=== PATIENT | female | born 1955 | race Caucasian/White ===

== ENCOUNTER 2024-04-11 19:09 | Emergency (ER) | payer MEDICARE, MEDICAID, SELFPAY ==
[2024-04-11 19:13] VITALS: BMI 19.5
[2024-04-11 19:14] VITALS: BP 169/83; PULSE 67; RESP 18; TEMP 36.6; O2SAT 98
--- NOTE | 2024-04-11 19:48 | PD.EDRME ---
Rapid Medical Screening Exam RME Arrival date/time: 04/11/24 19:09 Chief Complaint: General Adult/Misc Complain Time Seen by Provider: 04/11/24 19:47 Vital signs: Vital Signs Temperature 97.8 F 04/11/24 19:14 Pulse Rate 67 04/11/24 19:14 Respiratory Rate 18 04/11/24 19:14 Blood Pressure 169/83 H 04/11/24 19:14 Pulse Oximetry (%) 98 04/11/24 19:14 Oxygen Delivery Method Room Air 04/11/24 19:14 RME Narrative: 68-year-old female brought in after being found on the sidewalk. EMS reports she was missing for several hours prior to discovery. She is now presenting for further assessment and examination. MD Attestation MD Attestation Scribe Attestation: I, Eunice Shay, am scribing for and in the presence of Dr. Mccall. Provider Notation: Although this document has been carefully reviewed, there may still be some phonetic and other typographical errors. These errors are purely grammatical due to imperfections in the software program and should not be construed in any way to compromise the substance of the patient's medical care during this visit.
--- NOTE | 2024-04-11 19:53 | EDNOTE_ITS ---
ED General RME/HPI General Chief complaint: General Adult/Misc Complain Stated complaint: AMS Time Seen by Provider: 04/11/24 19:47 Source: patient and EMS Arrival date/time: 04/11/24 19:09 Mode of arrival: EMS Limitations: no limitations RME / HPI RME / HPI narrative: Dr. Mccall?s Main ED Evaluation: A 68-year-old female with a medical history of dementia, hypertension, asthma, rheumatoid arthritis, and schizophrenia was brought to the emergency department after being found on the sidewalk. According to EMS, the patient had been missing for several hours prior to discovery. The patient denied any pain or discomfort at the time of the evaluation. Related Data Home Medications ?Medication ?Instructions ?Recorded ?Confirmed folic acid 1 mg tablet 1 mg PO QDAY 12/28/23 lisinopril 20 1 tab PO QDAY 12/28/2312/27 mg-hydrochlorothiazide 12.5 mg tablet Previous Rx's ?Medication ?Instructions ?Recorded nicotine 14 mg/24 hr daily 14 mg top QDAY #7 ea transdermal patch quetiapine 50 mg tablet 50 mg PO BID #60 tabs Allergies Allergy/AdvReac Type Severity Reaction Status Date / Time No Known Allergies Allergy Verified 10/02/23 23:41 Review of Systems Review of Systems Systems Reviewed: All systems reviewed, normal except as documented Past Medical History Past Medical History NEUROLOGIC: Positive Neurological Disorders and Dementia CARDIAC: Positive Cardiac Disorders (HTN) and Hypertension; Negative Congestive Heart Failure RESPIRATORY: Positive Asthma (Rarely with breathing problems); Negative Chronic Obstructive Pulmonary Disease (COPD) GENITOURINARY: Negative Renal Disease MUSCULOSKELETAL: Positive Musculoskeletal Disorders and Rheumatoid Arthritis ENDOCRINE: Positive Endocrine Disorders; Negative Diabetes Mellitus Type 1 or Diabetes Mellitus Type 2 HEMATOLOGIC: Negative Sickle Cell Disease (Unknown) PSYCHO/SOCIAL: Positive Schizophrenia OTHER HISTORY: Negative Anesthesia Reactions Social History SMOKING STATUS: Never smoker SECOND HAND EXPOSURE: Yes SUBSTANCE USE: methamphetamine (hx) ED Exam Narrative Physical exam: Upon arrival, she appeared cachectic but was in no acute distress. She was alert and able to follow simple commands without evidence of facial droop or other neurological deficits. Physical examination revealed no signs of facial trauma, new bruising, or other external injuries. The abdomen was soft and non-tender to palpation, with no palpable lumps, masses, or abnormalities noted. General Limitations: Present no limitations General appearance: Present alert and in no apparent distress Head Head exam: Present atraumatic Eye Eye exam: Present normal appearance, PERRL and EOMI ENT ENT exam: Present normal exam, normal oropharynx and mucous membranes moist Neck Neck exam: Present normal inspection, full ROM and trachea midline Chest Chest inspection: Present normal inspection and symmetric chest wall rise Respiratory Respiratory exam: Present normal lung sounds bilaterally Cardiovascular Cardiovascular exam: Present regular rate, normal rhythm and normal heart sounds Abdominal Exam Abdominal exam: Present soft and normal bowel sounds Extremities Exam Extremities exam: Present normal inspection and full ROM Back Exam Back exam: Present normal inspection and full ROM Neurological Exam Neurological exam: Present alert, oriented X3 and CN II-XII intact Psychiatric Psychiatric exam: Present normal affect and normal mood Skin Skin exam: Present warm, dry, intact and normal color Course Course Course Narrative: Plan -CBC -UA Quality Measures none Orders Category Date Time Status CBC Stat Lab 04/11/24 22:21 Completed CMP [Comprehensive Metabolic Panel] Stat Lab 04/11/24 22:21 Completed Urinalysis, C/S if Indicated Stat Lab 04/11/24 22:22 Completed Vital Signs Vital signs: Vital Signs Temperature 97.8 F 04/11/24 19:14 Pulse Rate 67 04/11/24 19:14 Respiratory Rate 18 04/11/24 19:14 Blood Pressure 169/83 H 04/11/24 19:14 Pulse Oximetry (%) 98 04/11/24 19:14 Oxygen Delivery Method Room Air 04/11/24 19:14 [facility] Patient data External records reviewed:: [facility] previous records and EMS form Clinical information provided by:: EMS Social determinants that could affect healthcare access:: none Patient has the following chronic illnesses:: See PMH How is presenting disease/condition affected by chronic disease/condition?: u neffected by Evaluation data The following diagnostics were reviewed and interpreted by me:: lab results Lab and/or radiology exams considered but not ordered:: None Interpretation Summary: CBC is normal, CMP is normal, UA is unremarkable, according to my interpretation. Medications Medications considered but not ordered:: None Medication administrations:: As above, if any Consultations Consultation(s) initiated? (list below): No Diagnosis Differential Diagnosis ED Complaint MDM: Baseline dementia, UTI, electrolyte abnormality, dehydration Most likely diagnosis given after review of the tests above:: See clinical impression Admission Indicated Admission indicated?: not indicated Explain why admission is indicated or not indicated:: Admission criteria not met. Patient is stable to be discharged home. Admission Request Was there a request for admission?: No Disposition Plan Disposition Plan: Discharge Discharge Attestation Discharge Attestation: The patient and all family members were given an opportunity to ask questions and understood the discharge instructions. Discharge instructions specifically effects, indications for sooner follow up or return to the emergency department, and the expected course of current diagnosis. Patient condition: Stable Medical Decision Making MDM Narrative MDM Narrative: A review of the patient's medical record reveals a recent hospitalization in December 2023 due to a left hip displaced femoral neck fracture s/p hermiarthroplasty. The records further indicate that the patient is unhoused, living in her car, and has a longstanding history of schizophrenia. Additionally, there is documentation of chronic substance use, involving methamphetamine. The current presentation may be influenced by her complex circumstances such as her unstable living conditions, mental health history, and substance use. Scribe Attestation: I, Eunice Shay, am scribing for and in the presence of Dr. Mccall. Provider Notation: Although this document has been carefully reviewed, there may still be some phonetic and other typographical errors. These errors are purely grammatical due to imperfections in the software program and should not be construed in any way to compromise the substance of the patient's medical care during this visit. Differential Diagnosis Differential Diagnosis: Baseline dementia, UTI, electrolyte abnormality, dehydration Medical Records Medical records reviewed: Yes I reviewed the patient's medical records. Lab Data Lab results reviewed: Yes I reviewed the patient's lab results. 04/11/24 22:21 04/11/24 22:21 Labs: Lab Results 04/11/24 04/11/24 Range/Units 22:21 22:22 WBC 9.0 (3.6-11.0) Thou/mm3 RBC 4.34 (4.00-5.20) Miln/mm3 Hgb 12.3 (12.0-16.0) g/dL Hct 38.2 (36.0-46.0) % MCV 88 (80-100) fL MCH 28.3 (25.0-35.0) pg MCHC 32.2 (31.0-37.0) g/dl RDW Std Deviation 43.9 (36.4-46.3) fL Plt Count 241 (140-440) Thou/mm3 Neut % (Auto) 75 (37-80) % Lymph % (Auto) 16 (10-50) % [place] % (Auto) 8 (0-12) % Eos % (Auto) 0 (0-10) % Baso % (Auto) 1 (0-2.5) % Neut # (Auto) 6.7 (1.8-7.7) Thou/mm3 Lymph # (Auto) 1.4 (1.0-4.8) Thou/mm3 [place] # (Auto) 0.8 (0.0-0.8) Thou/mm3 Eos # (Auto) 0.0 (0.0-0.5) Thou/mm3 Baso # (Auto) 0.1 (0.0-0.2) Thou/mm3 Immature Gran # (Auto) 0.02 H (0.00-0.00) Thou/mm3 Absolute Nucleated RBC 0.00 (0.00-0.00) Thou/mm3 Immature Gran % 0 (0-0) % Nucleated RBC % 0 (0) /100 WBC Sodium 144 (136-145) mMol/L Potassium 3.9 (3.4-5.1) mMol/L Chloride 110 H (98-107) mMol/L Carbon Dioxide 26.8 (20.0-31.0) mMol/L Anion Gap 7 (7-16) BUN 19 (9-23) mg/dL Creatinine 0.8 (0.6-1.3) mg/dL Estim Creat Clear Calc 46.9 L (>60) mL/min eGFR > 60 (60 - ) See Note BUN/Creatinine Ratio 24 H (12-20) Ratio Glucose 89 (74-106) mg/dL Calculated Osmolality 288 (275-295) Calcium 9.9 (8.3-10.6) mg/dL Corrected Calcium 10.1 (8.5-10.1) mg/dL Total Bilirubin 0.4 (0.3-1.2) mg/dL AST 14 (0-34) U/L ALT < 7 L (10-49) U/L Alkaline Phosphatase 63 (46-116) U/L Total Protein 7.0 (5.7-8.2) gm/dL Albumin 3.8 (3.4-4.8) gm/dL Globulin 3.2 (2.3-3.5) gm/dL Albumin/Globulin Ratio 1.2 (1.2-2.2) Ur Collection Type Clean Catch Urine Color Yellow (Lt Yel-Yel) Urine Clarity Clear (Clear/Hazy) Urine pH 6.0 (5.0-7.0) Ur Specific [place] 1.026 (1.001-1.035) Urine Protein Trace (Neg - Trace) Urine Glucose (UA) Negative (Negative) Urine Ketones Trace (Negative) Urine Blood Negative (Negative) Urine Nitrite Negative (Negative) Urine Bilirubin Negative (Negative) Urine Urobilinogen (Auto) 3.0 (0.0-1.0) mg/dL Ur Leukocyte Esterase Positive (Negative) Urine RBC 3 (0-3) /hpf Urine WBC 8 H (0-5) /hpf Ur Squamous Epith Cells < 1 (0-5) /hpf Urine Bacteria None (None) Ur Culture Indicated? Not Indicated Discharge Plan Plan Patient Disposition: HOME (Self Care) Patient condition on transfer: Stable Prescriptions/Referrals Prescriptions/Med Rec: No Action folic acid 1 mg tablet 1 mg PO QDAY Patient Comments: TAKE 1 TABLET BY MOUTH EVERY DAY lisinopril-hydrochlorothiazide 20-12.5 mg tablet 1 tab PO QDAY Patient Comments: TAKE 1 TABLET BY MOUTH EVERY DAY nicotine 14 mg/24 hr Patch 24 Hour 14 mg top QDAY Qty: 7 0RF quetiapine 50 mg tablet 50 mg PO BID Qty: 60 0RF Referrals: No Primary/Family,Physician [Primary Care Provider] - In 1 week Problem List Clinical Impression: Dementia Patient/Caregiver Discharge Instructions Diet Instructions: Continue your current diet. Education Materials: Caring for End-Stage Dementia Additional Instructions: Return to the emergency department for any worsening symptoms, or any other concerns. Print Language: Swazi Stand Alone Forms: [facility] Award Info., Patient Portal Info Letter
[2024-04-11 20:10] VITALS: BP 172/93; PULSE 65; RESP 16; TEMP 37.1; O2SAT 100
[2024-04-11 21:10] VITALS: BP 148/100; PULSE 63; RESP 14; O2SAT 98
[2024-04-11 22:40] LABS: Basophils # (Auto) 0.1 Thou/mm3 (0.0-0.2); Basophils % (Auto) 1 % (0-2.5); Eosinophils % (Auto) 0 % (0-10); Hematocrit 38.2 % (36.0-46.0); Hemoglobin 12.3 g/dL (12.0-16.0); Immature Granulocytes % (Auto) 0 % (0-0); Immature Granulocytes Auto 0.02 Thou/mm3 (0.00-0.00); Lymphocytes # (Auto) 1.4 Thou/mm3 (1.0-4.8); Lymphocytes % (Auto) 16 % (10-50); Mean Corpuscular HGB Conc 32.2 g/dl (31.0-37.0); Mean Corpuscular Hemoglobin 28.3 pg (25.0-35.0); Mean Corpuscular Volume 88 fL (80-100); Monocytes # (Auto) 0.8 Thou/mm3 (0.0-0.8); Monocytes % (Auto) 8 % (0-12); Neutrophils # (Auto) 6.7 Thou/mm3 (1.8-7.7); Neutrophils % (Auto) 75 % (37-80); Nucleated Red Blood Cell % 0 /100 WBC (0); Platelet Count 241 Thou/mm3 (140-440); RDW Standard Deviation 43.9 fL (36.4-46.3); Red Blood Count 4.34 Miln/mm3 (4.00-5.20)
[2024-04-11 22:45] LABS: Collection Type, Urine Clean Catch
[2024-04-11 22:59] LABS: Bilirubin,Urine Negative (Negative); Blood,Urine Negative (Negative); Clarity,Urine Clear (Clear/Hazy); Color,Urine Yellow (Lt Yel-Yel); Culture Indicated,Urine Not Indicated; Glucose, Urine Negative (Negative); Ketones,Urine Trace (Negative); Leukocyte Esterase,Urine Positive (Negative); Nitrite,Urine Negative (Negative); Protein,Urine Trace (Neg - Trace); RBC,Urine 3 /hpf (0-3); Specific Gravity,Urine 1.026 (1.001-1.035); Squamous Epithelial Cell,Urine < 1 /hpf (0-5); WBC,Urine 8 /hpf (0-5)
[2024-04-11 23:00] VITALS: BP 135/75; O2SAT 98
[2024-04-11 23:05] LABS: Alanine Aminotransferase < 7 U/L (10-49); Albumin, Serum 3.8 gm/dL (3.4-4.8); Albumin/Globulin Ratio 1.2 (1.2-2.2); Alkaline Phosphatase 63 U/L (46-116); Anion Gap 7 (7-16); Aspartate Amino Transferase 14 U/L (0-34); BUN/Creatinine Ratio 24 Ratio (12-20); Bilirubin,Total 0.4 mg/dL (0.3-1.2); Blood Urea Nitrogen 19 mg/dL (9-23); Calcium 9.9 mg/dL (8.3-10.6); Calcium (Corrected) 10.1 mg/dL (8.5-10.1); Carbon Dioxide 26.8 mMol/L (20.0-31.0); Chloride 110 mMol/L (98-107); Creatinine (Component) 0.8 mg/dL (0.6-1.3); Estimated Creatinine Clearance 46.9 mL/min (>60); Globulin 3.2 gm/dL (2.3-3.5); Glucose 89 mg/dL (74-106); Osmolality,Calculated 288 (275-295); Potassium 3.9 mMol/L (3.4-5.1); Sodium 144 mMol/L (136-145); eGFR > 60 See Note
[2024-04-11 23:23] VITALS: BP 135/75; PULSE 53; RESP 14; O2SAT 99
[2024-04-12] VITALS (9 sets, daily range): BP systolic 85–125; BP diastolic 54–69; PULSE 61–68; RESP 14–20; TEMP 36.1–37.1; O2SAT 94–98
--- NOTE | 2024-04-12 06:37 | PC.NURSE ---
pT SLEPED THROUGH THE NIGHT. AROUSES EASILY.
== END 2024-04-12 07:46 | disposition home or self-care (01) ==
PROVIDERS: Emergency Provider Emergency Medicine
DX: F03.90 Unspecified dementia, unspecified severity, without behavioral disturbance, psychotic disturbance, mood disturbance, and anxiety (principal); I10 Essential (primary) hypertension; M06.9 Rheumatoid arthritis, unspecified; F20.9 Schizophrenia, unspecified
CPT/HCPCS: 36415; 80053; 81001; 85025; 99283

== ENCOUNTER 2024-04-16 23:36 | Emergency (ER) | payer MEDICARE, MEDICAID, SELFPAY ==
[2024-04-16 23:39] VITALS: BP 105/61; PULSE 78; RESP 20; TEMP 36.8; O2SAT 97
--- NOTE | 2024-04-16 23:46 | PD.EDPSYCH ---
ED Psych RME/HPI General Chief Complaint: Psychiatric Symptoms Stated Complaint: HOLD Time Seen by Provider: 04/16/24 23:40 Arrival date/time: 04/16/24 23:36 Limitations: altered mental status RME / HPI RME / HPI Narrative: Patient is a 68-year-old female with past medical history of hypertension, schizophrenia, meth use, homeless, rheumatoid arthritis, and COPD who was brought in to the ED on 04/16/2024 by law enforcement on a 5150 due to grave disability / danger to self. EMS stated that patient was found at a gas station throwing trash around. During evaluation patient is unable to answer questions appropriately, appears to be looking around, taking off her gown. She refuses to be examined. Previous records indicate that patient was admitted for a hip fracture 12/2023 and discharged to [facility]. Per detainment form 04/16/2024: Due to old age and medical issues, Rachel was unable to understand advisement. Travel center employee contacted [facility]'s Office, advised female left all her belongings and was last seen walking in cold weather. Rachel is unaware of her location. Rachel left all her property at a local store. Rachel is talking to herself and walking on the side of the street. Rachel is unable to care for herself. MD complaint: altered mental status History of same: Yes Treatments prior to arrival: none Related Data Home Medications ?Medication ?Instructions ?Recorded ?Confirmed folic acid 1 mg tablet 1 mg PO QDAY 12/28/23 12/28/23 lisinopril 20 1 tab PO QDAY 12/28/23 12/28/23 mg-hydrochlorothiazide 12.5 mg tablet Previous Rx's ?Medication ?Instructions ?Recorded nicotine 14 mg/24 hr daily 14 mg top QDAY #7 ea 01/04/24 transdermal patch quetiapine 50 mg tablet 50 mg PO BID #60 tabs 01/04/24 Allergies Allergy/AdvReac Type Severity Reaction Status Date / Time No Known Allergies Allergy Verified 10/02/23 23:41 Past Medical History Past Medical History Comments PMH COMMENT: Past Medical History: Hypertension, schizophrenia, meth use, homeless, rheumatoid arthritis, and COPD Family History: Unknown Surgical History: Unknown Social History: Unknown history of smoking, alcohol use. History of positive meth on Utox. Current Medications: Golimumab, divalproex 125 mg BID, quetiapine 100 mg qday, sertraline 25 mg qday, aspirin 81 mg (Source: Pharmacy prescription history) Allergies: No known drug allergies ED Exam Narrative Physical exam: Physical Exam General: Elderly and emaciated female confused and not answering questions appropriately. Psych: Hyperactive, not following commands, looking around constantly, tangential speech. Neuro: Moves all 4 extremities. General Limitations: Present altered mental status Course Course Course Narrative: Will order CBC, CMP, Mag, Phos, B12, Ammonia, TSH, Acetaminophen, Salicylate, Alcohol, Urine drug screen, and UA to determine any underlying medical etiology for the patient's psychosis. 00:07 Patient was administered 2 mg IM lorazepam and 5 mg IM haloperidol for agitation and unwillingness to comply with medical workup. Quality Measures none Orders Category Date Time Status Bedside Blood Glucose NOW Care 04/16/24 23:57 Active Acetaminophen Stat Lab 04/16/24 23:55 Received Alcohol, Blood Medical Stat Lab 04/16/24 23:55 Received Ammonia Stat Lab 04/16/24 23:58 Received CBC Stat Lab 04/16/24 23:55 Completed CMP [Comprehensive Metabolic Panel] Stat Lab 04/16/24 23:55 Received Drug Screen,Urine Stat Lab 04/16/24 23:55 Ordered Magnesium Stat Lab 04/16/24 23:55 Received Partial Thromboplastin Time Stat Lab 04/16/24 23:58 Received Phosphorous Stat Lab 04/16/24 23:55 Received Prothrombin Time with INR Stat Lab 04/16/24 23:58 Received Salicylate Stat Lab 04/16/24 23:55 Received Thyroid Stimulating Hormone Stat Lab 04/16/24 23:55 Received Urinalysis, C/S if Indicated Stat Lab 04/16/24 23:55 Ordered Vitamin B12 Stat Lab 04/16/24 23:55 Received Haloperidol Lactate [Haldol Inj] Med 04/17/24 00:02 Discontinued 5 mg IM X1 ONE LORazepam [Ativan Inj] Med 04/17/24 00:02 Discontinued 2 mg IM X1 ONE Vital Signs Vital signs: Vital Signs Temperature 98.2 F 04/16/24 23:39 Pulse Rate 78 04/16/24 23:39 Respiratory Rate 20 04/16/24 23:39 Blood Pressure 105/61 04/16/24 23:39 Pulse Oximetry (%) 97 04/16/24 23:39 Oxygen Delivery Method Room Air 04/16/24 23:39 Psych MDM Narrative MDM Narrative:: Labs reviewed as above. At this point medical workup is negative for medical underlying etiology. Pending urine results. Patient data External records reviewed:: [facility] previous records, EMS form and Other (specify) (Police form) Clinical information provided by:: EMS and law enforcement Social determinants that could affect healthcare access:: substance use Patient has the following chronic illnesses:: The records further indicate that the patient is unhoused, living in her car, and has a longstanding history of schizophrenia. Additionally, there is documentation of chronic substance use, involving methamphetamine. The current presentation may be influenced by her complex circumstances such as her unstable living conditions, mental health history, and substance use. How is presenting disease/condition affected by chronic disease/condition?: exacerbated by Evaluation data The following diagnostics were reviewed and interpreted by me:: lab results Lab and/or radiology exams considered but not ordered:: Head CT Interpretation Summary: Labs including CBC, CMP, ammonia, TSH, coagulation panel, salicylates, acetaminophen, alcohol level normal. Medications / Prescriptions Medications or Prescriptions considered but not ordered:: Continuing PO valproate. Medication administrations:: Medication Administration History Discontinued Medications Haloperidol Lactate (Haloperidol Lact Inj 5 Mg/Ml Vial) 5 mg IM X1 ONE Stop: 04/17/24 00:03 Last Admin: 04/17/24 00:12 Dose: 5 mg Documented By: CVL Lorazepam (Lorazepam 2 Mg/Ml Vial) 2 mg IM X1 ONE Stop: 04/17/24 00:03 Last Admin: 04/17/24 00:09 Dose: 2 mg Documented By: CVL . Consultations Consultation(s) initiated? (list below): No Diagnosis Psych Differential Diagnosis: chronic schizophrenia and drug-induced psychotic disorder Most likely diagnosis given after review of the tests above:: Schizoprenia Admission Indicated Admission indicated?: not indicated Explain why admission is indicated or not indicated:: Patient requiring psych services Admission Request Was there a request for admission?: No Disposition Plan Disposition Plan: other (specify) Discharge Attestation Discharge Attestation: Care will be signed out to the oncoming provider at 0600 to have psych evaluation completed. Discharge Plan Prescriptions/Referrals Prescriptions/Med Rec: No Action folic acid 1 mg tablet 1 mg PO QDAY Patient Comments: TAKE 1 TABLET BY MOUTH EVERY DAY lisinopril-hydrochlorothiazide 20-12.5 mg tablet 1 tab PO QDAY Patient Comments: TAKE 1 TABLET BY MOUTH EVERY DAY nicotine 14 mg/24 hr Patch 24 Hour 14 mg top QDAY Qty: 7 0RF quetiapine 50 mg tablet 50 mg PO BID Qty: 60 0RF Referrals: No Primary/Family,Physician [Primary Care Provider] - In 1 week Problem List Clinical Impression: Chronic schizophrenia Patient/Caregiver Discharge Instructions Print Language: Bulgarian
--- NOTE | 2024-04-17 | PC.NURSE ---
PT AT ROOM 18, VERY ALTERED , GOT NAKED , NOT COOPERATING, DR. GRUBBS AWARE, NEW ORDER GIVEN AND CARRIED OUT.
[2024-04-17] MEDS: LORazepam 2 MG/ML VIAL IM (00:09)
[2024-04-17] MEDS: HALOPERIDOL LACT INJ 5 MG/ML VIAL IM (00:12)
[2024-04-17 00:50] LABS: Basophils # (Auto) 0.1 Thou/mm3 (0.0-0.2); Basophils % (Auto) 1 % (0-2.5); Eosinophils # (Auto) 0.1 Thou/mm3 (0.0-0.5); Eosinophils % (Auto) 2 % (0-10); Hematocrit 37.7 % (36.0-46.0); Hemoglobin 12.3 g/dL (12.0-16.0); Immature Granulocytes % (Auto) 0 % (0-0); Immature Granulocytes Auto 0.02 Thou/mm3 (0.00-0.00); Lymphocytes # (Auto) 1.9 Thou/mm3 (1.0-4.8); Lymphocytes % (Auto) 27 % (10-50); Mean Corpuscular HGB Conc 32.6 g/dl (31.0-37.0); Mean Corpuscular Hemoglobin 28.3 pg (25.0-35.0); Mean Corpuscular Volume 87 fL (80-100); Monocytes # (Auto) 0.5 Thou/mm3 (0.0-0.8); Monocytes % (Auto) 6 % (0-12); Neutrophils # (Auto) 4.7 Thou/mm3 (1.8-7.7); Neutrophils % (Auto) 65 % (37-80); Nucleated Red Blood Cell % 0 /100 WBC (0); Platelet Count 160 Thou/mm3 (140-440); RDW Standard Deviation 43.7 fL (36.4-46.3); Red Blood Count 4.34 Miln/mm3 (4.00-5.20); White Blood Count 7.3 Thou/mm3 (3.6-11.0)
--- NOTE | 2024-04-17 00:54 | PC.NURSE ---
PT BROUGHT TO ER BY AMBULANCE, EMS REPORTED THAT [employer] WROTE 5150 HOLD FOR GRAVELY DISABLED. PT HX OF DEMENTIA, EMS SAIOD PT WAS AT [employer] [facility] TROWING TRASH AROUND.
[2024-04-17 00:59] LABS: Partial Thromboplastin Time 27.8 Seconds (22.0-36.0); Prothrombin Time 10.9 Seconds (9.0-12.2)
[2024-04-17 01:23] LABS: Acetaminophen < 2.0 mcg/mL (10.0-20.0); Alanine Aminotransferase < 7 U/L (10-49); Albumin, Serum 4.2 gm/dL (3.4-4.8); Albumin/Globulin Ratio 1.2 (1.2-2.2); Alcohol, Blood Medical < 3.0 mg/dL (0-10.0); Alkaline Phosphatase 68 U/L (46-116); Ammonia < 10 uMol/L (11-32); Anion Gap 8 (7-16); Aspartate Amino Transferase 17 U/L (0-34); BUN/Creatinine Ratio 18 Ratio (12-20); Bilirubin,Total 0.3 mg/dL (0.3-1.2); Blood Urea Nitrogen 18 mg/dL (9-23); Calcium 10.3 mg/dL (8.3-10.6); Calcium (Corrected) 10.3 mg/dL (8.5-10.1); Carbon Dioxide 27.8 mMol/L (20.0-31.0); Chloride 107 mMol/L (98-107); Globulin 3.4 gm/dL (2.3-3.5); Glucose 113 mg/dL (74-106); Magnesium 1.8 mg/dL (1.6-2.6); Osmolality,Calculated 287 (275-295); Phosphorous 3.3 mg/dL (2.4-5.1); Potassium 3.5 mMol/L (3.4-5.1); Salicylate < 3.0 mg/dL; Sodium 143 mMol/L (136-145); Thyroid Stimulating Hormone 1.52 uIU/mL (0.55-4.78); Total Protein 7.6 gm/dL (5.7-8.2); eGFR > 60 See Note
[2024-04-17 02:23] VITALS: BP 119/61; PULSE 48; RESP 16; O2SAT 98
[2024-04-17 02:29] LABS: Vitamin B12 602 pg/mL (211-911)
[2024-04-17 04:44] VITALS: BP 107/58; PULSE 48; RESP 17; TEMP 36.6; O2SAT 97
[2024-04-17 06:20] VITALS: BP 96/56; PULSE 49; RESP 17; TEMP 36.7; O2SAT 98
--- NOTE | 2024-04-17 06:44 | EDNOTE_ITS ---
Emergency Room Addendum Addendum Narrative: 0600: Care assumed from Dr. Rivera, the previous shift emergency physician. Past medical, surgical, social and family history reviewed. Vitals and home medications reviewed. I will assume the care of the patient at this time. Please refer to the emergency department record for history and examination from initial visit.? Physical exam by me shows patient under no acute distress at this time. 1100: 5150-Rescinded. Patient remains clinically stable throughout the emergency department visit. Re- assessment at the time of disposition demonstrates that the patient is in no acute distress. We reviewed all the results, analysis, and treatment plans. Patient is amenable to discharge. Strict return precautions were outlined. Patient was discharged in stable condition. Diagnoses: Chronic schizophrenia, Hard of hearing
[2024-04-17 10:00] VITALS: BP 113/68; PULSE 68; RESP 17; TEMP 36.1; O2SAT 97
--- NOTE | 2024-04-17 14:29 | PC.CC ---
Patient is a 68 year-old female who presents to the hospital on a 5150-Hold for Gravely Disabled by [facility], Derbyjaja Tello.? Kieran made [id number] contact with patient to complete assessment. ASW?s introduced self, role, and reason for collateral information to patient?s life partner Aravind John who was at bedside. Patient was non-arousal as she was asleep. ASW disclosed limits of confidentiality to Aravind. Aravind was able to provide collateral information to ASW he reports that patient went for a walk and did not return. He disclosed that patient has onset dementia and they recently moved to her nieces, Janette Willson home. Per Aravind, he believes the patient became disoriented due to her dementia. He reports that the patient is being followed at [facility] and was recently referred to psychiatry for a consultation for her dementia. Aravind reports since being with the patient for 15 years the patient has never made suicidal or homicidal statements and patient does not have visual or auditory hallucinations. No mental health history that he is aware except for the dementia. 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 Aravind uses an bryce on his phone to communicate with patient which assisted ASW in communicating with the patient. Kieran made [id number] contact with patient to complete assessment. ASW?s introduced self, role, and reason for visit to patient and limits to confidentiality. Patient reports she feels safe at home with Aravind and wants to go home with him. Patient denied suicidal and homicidal ideations. Patient denied visual and auditory hallucinations. Patient denied mental health history. Patient is able to ambulate independently and complete her own ADLs. Patient does not use any DME at home. Upon clinical consultation with [facility], Jamilah Monterroso patient does not meet criteria for 5150-hold and this hold is rescinded. Safety plan is that patient?s life partner will be taking patient home and will monitor the patient and provide extra-supervision. Patient to follow up with her referral to psychiatry when provided with an appointment.
[2024-04-17 15:01] VITALS: BP 103/66; PULSE 71; RESP 17; TEMP 36.4; O2SAT 98
== END 2024-04-17 15:26 | disposition home or self-care (01) ==
PROVIDERS: Student in an Organized Health Care Education/Training Program; Emergency Provider Emergency Medicine
DX: F20.9 Schizophrenia, unspecified (principal); H91.90 Unspecified hearing loss, unspecified ear; I10 Essential (primary) hypertension; M06.9 Rheumatoid arthritis, unspecified; J44.9 Chronic obstructive pulmonary disease, unspecified; F15.90 Other stimulant use, unspecified, uncomplicated; F10.90 Alcohol use, unspecified, uncomplicated; Y90.0 Blood alcohol level of less than 20 mg/100 ml; Z59.02 Unsheltered homelessness; Z79.82 Long term (current) use of aspirin; Z79.899 Other long term (current) drug therapy
CPT/HCPCS: 36415; 80053; 80307; 80320; 80329; 81001; 82140; 82607; 83735; 84100; 84443; 85025; 85610; 85730; 90839; 96127; 96372; 99284; J1630; J2060; G0480

== ENCOUNTER 2024-05-06 20:44 | Emergency (ER) | payer MEDICARE, MEDICAID, SELFPAY ==
[2024-05-06 21:10] VITALS: BP 131/77; PULSE 66; RESP 16; TEMP 36.8; O2SAT 97
--- NOTE | 2024-05-06 21:20 | PC.NURSE ---
Pt BIBA on a 5150 HOLD from [facility] for gravely disabled. pt came in talking and yelling nonsense restraint to stretcher. pt placed in rm 7. security Jaquelin present. pt refusing to answer nurse questions.
--- NOTE | 2024-05-06 22:04 | PD.EDPSYCH ---
ED Psych RME/HPI General Chief Complaint: Psychiatric Symptoms Stated Complaint: HOLD Time Seen by Provider: 05/06/24 22:03 Arrival date/time: 05/06/24 20:44 Limitations: no limitations RME / HPI RME / HPI Narrative: Dr. Mccall's Main ED Evaluation: 68yo female with a history of schizophrenia BIB [facility] presents to the ED on a 5150 hold for gravely disabled. Per [facility] note, patient was picked up nd appeared detached from reality . [facility] felt the patient was nonsensical and was not answering questions appropriately. Patient has not slept for 4 days. Patient makes statements such as they've experimented on me and I just want to be left alone . Patient denies any SI or HI. Related Data Home Medications ?Medication ?Instructions ?Recorded ?Confirmed folic acid 1 mg tablet 1 mg PO QDAY 12/28/23 12/28/23 lisinopril 20 1 tab PO QDAY 12/28/23 12/28/23 mg-hydrochlorothiazide 12.5 mg tablet Previous Rx's ?Medication ?Instructions ?Recorded nicotine 14 mg/24 hr daily 14 mg top QDAY #7 ea 01/04/24 transdermal patch quetiapine 50 mg tablet 50 mg PO BID #60 tabs 01/04/24 Allergies Allergy/AdvReac Type Severity Reaction Status Date / Time No Known Allergies Allergy Verified 04/17/24 05:47 Review of Systems Review of Systems Systems Reviewed: All systems reviewed, normal except as documented Past Medical History Past Medical History NEUROLOGIC: Positive Neurological Disorders and Dementia CARDIAC: Positive Cardiac Disorders and Hypertension; Negative Congestive Heart Failure RESPIRATORY: Positive Asthma; Negative Chronic Obstructive Pulmonary Disease (COPD) GENITOURINARY: Negative Renal Disease MUSCULOSKELETAL: Positive Musculoskeletal Disorders and Rheumatoid Arthritis ENDOCRINE: Positive Endocrine Disorders; Negative Diabetes Mellitus Type 1 or Diabetes Mellitus Type 2 HEMATOLOGIC: Negative Sickle Cell Disease PSYCHO/SOCIAL: Positive Schizophrenia OTHER HISTORY: Negative Anesthesia Reactions Social History SMOKING STATUS: Unknown if ever smoked SECOND HAND EXPOSURE: Yes SUBSTANCE USE: methamphetamine (hx) ED Exam General Limitations: Present no limitations General appearance: Present alert, in no apparent distress, cachectic and other (has pressured speech, thin, not redirectable) Head Head exam: Present atraumatic Eye Eye exam: Present normal appearance, PERRL and EOMI ENT ENT exam: Present normal exam, normal oropharynx and mucous membranes moist Neck Neck exam: Present normal inspection, full ROM and trachea midline Chest Chest inspection: Present normal inspection and symmetric chest wall rise Respiratory Respiratory exam: Present normal lung sounds bilaterally Cardiovascular Cardiovascular exam: Present regular rate, normal rhythm and normal heart sounds Abdominal Exam Abdominal exam: Present soft and normal bowel sounds Extremities Exam Extremities exam: Present normal inspection and full ROM Back Exam Back exam: Present normal inspection and full ROM Neurological Exam Neurological exam: Present alert Psychiatric Psychiatric exam: Present normal affect and agitated Skin Skin exam: Present warm, dry, intact and normal color Course Quality Measures none Orders Category Date Time Status CT head/brain wo con Stat Exams 05/06/24 22:05 Completed Alcohol, Blood Medical Stat Lab 05/06/24 22:04 Completed CBC Stat Lab 05/06/24 22:04 Completed CMP [Comprehensive Metabolic Panel] Stat Lab 05/06/24 22:04 Completed Drug Screen,Urine Stat Lab 05/06/24 22:28 Completed Urinalysis Stat Lab 05/06/24 22:28 Completed DiphenhydrAMINE [Benadryl] Med 05/06/24 23:14 Discontinued 50 mg PO X1 ONE LORazepam [Ativan] Med 05/06/24 23:14 Discontinued 2 mg PO X1 ONE Vital Signs Vital signs: Vital Signs Temperature 98.2 F 05/06/24 21:10 Pulse Rate 66 05/06/24 21:10 Respiratory Rate 16 05/06/24 21:10 Blood Pressure 131/77 H 05/06/24 21:10 Pulse Oximetry (%) 97 05/06/24 21:10 Oxygen Delivery Method Room Air 05/06/24 21:10 Psych MDM Narrative MDM Narrative:: Patient is medically clear for crisis evaluation. Patient data External records reviewed:: [facility] previous records (Per chart review, patient was seen here on 04/17/24 for chronic schizophrenia.) Clinical information provided by:: patient and law enforcement Social determinants that could affect healthcare access:: mental health Patient has the following chronic illnesses:: schizophrenia How is presenting disease/condition affected by chronic disease/condition?: caused by Evaluation data The following diagnostics were reviewed and interpreted by me:: lab results Lab and/or radiology exams considered but not ordered:: none Interpretation Summary: CBC is normal, CMP is normal, UA is unremarkable, UDS is positive for methamphetamines, Blood Alcohol is negative, according to my interpretation. ----- [facility] Report Signed Patient: FADY OLVERA. Record#: [id number] Birthdate: 1955 Age/Sex: 68 / F Location: [facility] Attending Dr: Ordering Physician: Judi Mccall MD Date of Service: 05/06/24 Procedure(s): CT head/brain wo con Accession Number(s): [id number] cc: Patrick Brewer MD; NO PRIMARY/FAMILY,PHYSICIAN; Judi Mccall MD~ Examination: CT brain head without contrast. 2-D sagittal coronal reconstructions Date and time of exam:May 06, 2024 1112 hrs. Indications: Onset altered mental status today CTDI: vol (mGy):47.4 DLP: (mGycm):986 Technique: Multiple CT axial sections of the brain have been obtained, 5 mm slice thickness. Contrast has not been administered. 2-D sagittal, coronal reconstructions have been obtained Low dose protocols were performed. One or more of the following dose reduction techniques were used; automated exposure control, adjustment of the mA and/or KV according to patient size, use of iterative reconstruction technique. Findings: No significant ventricular enlargement. Intra-axial or extra-axial hemorrhage density is not seen. No mass effect or midline shift Basal cisterns are not remarkable. Fourth ventricle is midline. Cranial vault intact. Bilateral mastoid present surgical defect Impression: Negative for acute hemorrhage, mass effect or midline shift Advise clinical correlation follow-up accordingly Dictated By: Patrick Brewer MD Signed By: <Electronically signed by Patrick Brewer MD in OV> 05/06/24 0619 Medications / Prescriptions Medications or Prescriptions considered but not ordered:: none Medication administrations:: Medication Administration History Discontinued Medications Diphenhydramine HCl (Diphenhydramine Elix 25 Mg/10 Ml Udc) 50 mg PO X1 ONE Stop: 05/06/24 23:15 Lorazepam (Lorazepam 0.5 Mg Tablet) 2 mg PO X1 ONE Stop: 05/06/24 23:15 see above Consultations Consultation(s) initiated? (list below): No Diagnosis Psych Differential Diagnosis: acute psychosis, chronic schizophrenia and drug-induced psychotic disorder Most likely diagnosis given after review of the tests above:: see below Admission Indicated Admission indicated?: not indicated Admission Request Was there a request for admission?: No Disposition Plan Disposition Plan: other (specify) (Signed out to Dr. Gonzalez at 0600 pending crisis evaluation.) Discharge Plan Plan Disposition Comment: Stable at signout. Prescriptions/Referrals Prescriptions/Med Rec: No Action folic acid 1 mg tablet 1 mg PO QDAY Patient Comments: TAKE 1 TABLET BY MOUTH EVERY DAY lisinopril-hydrochlorothiazide 20-12.5 mg tablet 1 tab PO QDAY Patient Comments: TAKE 1 TABLET BY MOUTH EVERY DAY nicotine 14 mg/24 hr Patch 24 Hour 14 mg top QDAY Qty: 7 0RF quetiapine 50 mg tablet 50 mg PO BID Qty: 60 0RF Referrals: No Primary/Family,Physician [Primary Care Provider] - In 1 week Problem List Clinical Impression: Methamphetamine abuse, Homeless Patient/Caregiver Discharge Instructions Print Language: Ukrainian
--- NOTE | 2024-05-06 22:30 | PC.NURSE ---
pt taken to bathroom by documenting nurse. nurse collected urine and pt became verbally agitated that her urine was being collected yelling she refuses service, and that she was going to shoot documenting nurse. pt was able to be directed to her room while yelling nonsense.
[2024-05-06 22:39] LABS: Collection Type, Urine Voided
[2024-05-06 22:56] LABS: Bilirubin,Urine Negative (Negative); Blood,Urine 1+ (Negative); Clarity,Urine Turbid (Clear/Hazy); Color,Urine Lt-Yellow (Lt Yel-Yel); Glucose, Urine Negative (Negative); Ketones,Urine Negative (Negative); Leukocyte Esterase,Urine Positive (Negative); Nitrite,Urine Negative (Negative); Protein,Urine Negative (Neg - Trace); RBC,Urine 58 /hpf (0-3); Specific Gravity,Urine 1.024 (1.001-1.035); Squamous Epithelial Cell,Urine 1 /hpf (0-5); Urobilinogen,Urine Negative mg/dL (0.0-1.0); WBC,Urine 9 /hpf (0-5)
[2024-05-06 23:03] LABS: Amphetamine/Methamp Scrn,U Positive (Negative); Barbiturate Screen,Urine Negative (Negative); Benzodiazepines Screen,Urine Negative (Negative); Benzoylecgonine Screen, Ur Negative (Negative); Fentanyl Screen,Urine Negative (Negative); Opiate Screen,Urine Negative (Negative); THC Screen,Urine Negative (Negative)
[2024-05-07 04:08] LABS: Basophils # (Auto) 0.1 Thou/mm3 (0.0-0.2); Basophils % (Auto) 1 % (0-2.5); Eosinophils # (Auto) 0.3 Thou/mm3 (0.0-0.5); Eosinophils % (Auto) 4 % (0-10); Hematocrit 36.7 % (36.0-46.0); Hemoglobin 11.8 g/dL (12.0-16.0); Immature Granulocytes % (Auto) 0 % (0-0); Immature Granulocytes Auto 0.01 Thou/mm3 (0.00-0.00); Lymphocytes # (Auto) 1.8 Thou/mm3 (1.0-4.8); Lymphocytes % (Auto) 30 % (10-50); Mean Corpuscular HGB Conc 32.2 g/dl (31.0-37.0); Mean Corpuscular Hemoglobin 28.3 pg (25.0-35.0); Mean Corpuscular Volume 88 fL (80-100); Monocytes # (Auto) 0.6 Thou/mm3 (0.0-0.8); Monocytes % (Auto) 9 % (0-12); Neutrophils # (Auto) 3.4 Thou/mm3 (1.8-7.7); Neutrophils % (Auto) 56 % (37-80); Nucleated Red Blood Cell % 0 /100 WBC (0); Platelet Count 206 Thou/mm3 (140-440); Red Blood Count 4.17 Miln/mm3 (4.00-5.20); White Blood Count 6.1 Thou/mm3 (3.6-11.0)
[2024-05-07 04:43] LABS: Alanine Aminotransferase < 7 U/L (10-49); Albumin, Serum 3.7 gm/dL (3.4-4.8); Albumin/Globulin Ratio 1.3 (1.2-2.2); Alcohol, Blood Medical < 3.0 mg/dL (0-10.0); Alkaline Phosphatase 53 U/L (46-116); Anion Gap 6 (7-16); Aspartate Amino Transferase 14 U/L (0-34); BUN/Creatinine Ratio 24 Ratio (12-20); Bilirubin,Total 0.4 mg/dL (0.3-1.2); Blood Urea Nitrogen 19 mg/dL (9-23); Calcium 9.7 mg/dL (8.3-10.6); Calcium (Corrected) 9.9 mg/dL (8.5-10.1); Carbon Dioxide 29.3 mMol/L (20.0-31.0); Chloride 109 mMol/L (98-107); Creatinine (Component) 0.8 mg/dL (0.6-1.3); Globulin 2.8 gm/dL (2.3-3.5); Glucose 82 mg/dL (74-106); Osmolality,Calculated 288 (275-295); Potassium 3.4 mMol/L (3.4-5.1); Sodium 144 mMol/L (136-145); Total Protein 6.5 gm/dL (5.7-8.2); eGFR > 60 See Note
[2024-05-07 06:31] VITALS: BP 150/74; PULSE 56; RESP 18; TEMP 36.6; O2SAT 96
--- NOTE | 2024-05-07 07:02 | PD.EDADDENDU ---
Emergency Room Addendum <Chas Gonzalez MD - Last Filed: 05/07/24 09:03> Addendum Narrative: Signed out 0600 hrs. history of homelessness meth use was 5150 by [address] waiting for mental health evaluation.. Patient is medically cleared by the previous provider. Patient has been evaluated by our ASW and reports at this time patient has no SI or HI. States the 5150 hold has been rescinded and cleared to go home. At 0900 hrs. that she is 5150 has been rescinded and patient is ready to go home. She is no longer suicidal and is angry that she has to wait any longer. <Mehnaz Smith - Last Filed: 05/07/24 08:37> Addendum Narrative: Signed out 0600 hrs. history of homelessness meth use was [address] waiting for mental health evaluation.. Patient is medically cleared by the previous provider. Patient has been evaluated by our ASW and reports at this time patient has no SI or HI. States the 5150 hold has been rescinded and cleared to go home.
--- NOTE | 2024-05-07 08:48 | PC.NURSE ---
WENT INTO ASSES PT, PT WAS COOPERATIVE AND PLEASANT ABLE TO ANSWER ALL QUESTIONS. SHE WAS AWARE THAT OFFICER BROUGHT HER BUT SHE STATES THAT SHE CALLED THEM TO MAKE A COMPLIANT BUT WAS BROUGHT IN. SHE DENIES ANY SUICIDAL/ HOMICIDAL IDEATION, DENIES ANY HALLUCINATIONS
--- NOTE | 2024-05-07 09:03 | PC.CC ---
Patient is a 68 year-old female who presents to the hospital on a 5150-Hold by [facility], [place] Pat[place].? JATINWAdelita made ffam-wv-ldim contact with patient to complete assessment. ASW?s introduced self, role, and reason for visit. Patient made appropriate eye contact and engaged with ASW. ASW communicated with patient by writing on a piece of paper and patient responded verbally. Patient reports that [facility] should have never placed her on a 5150-Hold. She was placed on a hold because she is unable to communicate with them and she had called to complain as there was loud music being played and was causing her ears to vibrate. Patient tested positive for amphetamines. Patient denied past suicide attempts. Patient denied suicidal and homicidal ideations and visual and auditory hallucinations. Patient denied mental health history and reports that she is being followed by [facility]. Patient reports she is currently homeless and living in her care behind her niece?s house that is the address on the demographics. Upon clinical consultation with STACKER TENDER, Smita Sanford patient does not meet criteria for 5150-hold and the current hold will be rescinded. ASW provided a [facility] Community Resource Guide to the patient and an appointment with her provider at [facility] location for 05/08/2024 at 3:00pm ASW provided discharge plan to Dr. Gonzalez, lab animal technologist Alicia, and bedside RN Jackson/Rafia.
== END 2024-05-07 09:13 | disposition home or self-care (01) ==
PROVIDERS: Emergency Medicine; Emergency Provider Emergency Medicine
DX: F15.10 Other stimulant abuse, uncomplicated (principal); F20.9 Schizophrenia, unspecified; Z59.00 Homelessness unspecified
CPT/HCPCS: 36415; 70450; 80053; 80307; 80320; 81001; 85025; 90839; 96127; 99284; G0480

== ENCOUNTER 2024-07-06 16:14 | Emergency (ER) | payer MEDICARE, MEDICAID, SELFPAY ==
[2024-07-06 16:15] VITALS: BMI 17.2
--- NOTE | 2024-07-06 16:15 | PC.NURSE ---
FOUND WALKING ON FREEWAY AND [facility] PUT PT ON 5150 HOLD FOR DANGER TO SELF
--- NOTE | 2024-07-06 16:23 | PC.NURSE ---
HEARSE DRIVER GAVE COPY OF [id number] PAPERWORK AND NOT THE ORIGINAL TO THE OPERATIONS SUPERINTENDENT. [facility] [place] AND THEY WILL HAVE OFFICE BRING ORIGINAL FORM TO THE HOSPITAL
[2024-07-06 16:30] VITALS: BP 108/60; PULSE 60; RESP 18; TEMP 36.4; O2SAT 97
--- NOTE | 2024-07-06 16:34 | PD.EDPSYCH ---
ED Psych RME/HPI General Chief Complaint: Psychiatric Symptoms Stated Complaint: PYSH EVAL Time Seen by Provider: 07/06/24 16:21 Arrival date/time: 07/06/24 16:14 RME / HPI RME / HPI Narrative: DR. DE LA CRUZ MAIN ED EVALUATION: 69 year old female with past medical history significant for schizophrenia and methamphetamine abuse presents to the Emergency Department BIBA after the patient was walking on the freeway. Patient has history of dementia and previous holds. Patient is agitated, unkempt, and we found a small bag of methamphetamine in her pocket. Police said the patient is on a 5150 hold. Related Data Home Medications ?Medication ?Instructions ?Recorded ?Confirmed folic acid 1 mg tablet 1 mg PO QDAY 12/28/23 12/28/23 lisinopril 20 1 tab PO QDAY 12/28/23 12/28/23 mg-hydrochlorothiazide 12.5 mg tablet Previous Rx's ?Medication ?Instructions ?Recorded nicotine 14 mg/24 hr daily 14 mg top QDAY #7 ea 01/04/24 transdermal patch quetiapine 50 mg tablet 50 mg PO BID #60 tabs 01/04/24 Allergies Allergy/AdvReac Type Severity Reaction Status Date / Time No Known Allergies Allergy Verified 04/17/24 05:47 Review of Systems Review of Systems Systems Reviewed: All systems reviewed, normal except as documented Past Medical History Past Medical History NEUROLOGIC: Positive Neurological Disorders and Dementia CARDIAC: Positive Cardiac Disorders and Hypertension RESPIRATORY: Positive Asthma MUSCULOSKELETAL: Positive Musculoskeletal Disorders and Rheumatoid Arthritis ENDOCRINE: Positive Endocrine Disorders PSYCHO/SOCIAL: Positive Schizophrenia Social History SMOKING STATUS: Unknown if ever smoked SECOND HAND EXPOSURE: Yes SUBSTANCE USE: methamphetamine (hx) ALCOHOL: Never ED Exam Narrative Physical exam: GENERAL APPEARANCE: Patient is agitated, unkempt, thin, and we found a small bag of methamphetamine in her pocket. VITALS: All vitals were reviewed and the pulse ox is 97% on room air, which is normal according to my interpretation. HEENT: Normocephalic, atraumatic; pupils equal, round, reactive to light; EOMI; mucous membranes pink, moist; oropharynx clear NECK: Supple LUNGS: CTABL; no wheezes, no rales, no rhonchi HEART: Regular rate, regular rhythm; normal S1, S2; no murmurs ABDOMEN: non distended; normal BS; soft, no tenderness, no guarding, no rebound; no masses, no organomegaly, no hernia BACK: no CVA tenderness EXTREMITIES: atraumatic; no edema NEUROLOGIC: awake; alert and oriented x4; cranial nerves II-XII grossly intact; no focal sensory or motor deficits PSYCHIATRIC: agitated, combative SKIN: warm, dry, normal color; no rashes Course Quality Measures none Orders Category Date Time Status Drug Screen,Urine Stat Lab 07/06/24 16:45 Received UA, C/S IF [Urinalysis, C/S if Indicated] Stat Lab 07/06/24 16:45 Received Vital Signs Vital signs: Vital Signs Temperature 97.6 F 07/06/24 16:30 Pulse Rate 60 07/06/24 16:30 Respiratory Rate 18 07/06/24 16:30 Blood Pressure 108/60 07/06/24 16:30 Pulse Oximetry (%) 97 07/06/24 16:30 Oxygen Delivery Method Room Air 07/06/24 16:30 Psych MDM Narrative MDM Narrative:: IDian am scribing for and in the presence of Dr. De La Cruz. Patient data External records reviewed:: EMS form Clinical information provided by:: patient and EMS Social determinants that could affect healthcare access:: substance use (methamphetamine) Patient has the following chronic illnesses:: Schizophrenia, methamphetamine abuse, dementia, and previous holds. How is presenting disease/condition affected by chronic disease/condition?: exacerbated by Evaluation data The following diagnostics were reviewed and interpreted by me:: lab results Lab and/or radiology exams considered but not ordered:: none Interpretation Summary: methamphetamine abuse Medications / Prescriptions Medications or Prescriptions considered but not ordered:: none Medication administrations:: see above if any Consultations Consultation(s) initiated? (list below): No Diagnosis Psych Differential Diagnosis: chronic schizophrenia, drug-induced psychotic disorder and acute anxiety Most likely diagnosis given after review of the tests above:: Acute psychosis Methamphetamine abuse Admission Indicated Admission indicated?: not indicated Admission Request Was there a request for admission?: No Disposition Plan Disposition Plan: other (specify) (Patient signed out to Dr. Mccall, pending mental health evaluation.) Discharge Plan Prescriptions/Referrals Prescriptions/Med Rec: No Action folic acid 1 mg tablet 1 mg PO QDAY Patient Comments: TAKE 1 TABLET BY MOUTH EVERY DAY lisinopril-hydrochlorothiazide 20-12.5 mg tablet 1 tab PO QDAY Patient Comments: TAKE 1 TABLET BY MOUTH EVERY DAY nicotine 14 mg/24 hr Patch 24 Hour 14 mg top QDAY Qty: 7 0RF quetiapine 50 mg tablet 50 mg PO BID Qty: 60 0RF Referrals: No Primary/Family,Physician [Primary Care Provider] - In 1 week Problem List Clinical Impression: Acute psychosis, Methamphetamine abuse Patient/Caregiver Discharge Instructions Print Language: Yoruba
--- NOTE | 2024-07-06 16:38 | PC.NURSE ---
WHILE AVIATION MAINTENANCE TECHNICIAN WAS GETTING PT INTO GOWN FOUND BAGGY OF SUBSTANCE THAT DR. VEE SAYS IS METH. WILL GIVE TO OFFICER WHEN THEY ARRIVE
--- NOTE | 2024-07-06 16:40 | PC.SS ---
SS update: This 69 year old female presents to the ED on a 5150-Hold by [facility] for Deputy Kadie Kumar #[id number] for Danger to Self and Gravely Disabled. The hold indicates that the patient was walking by the freeway and did not know where she was, hold also indicated the patient was confused and unable to care for herself. At this time the patient is pending medical clearance for a mental health evaluation.
--- NOTE | 2024-07-06 16:41 | PC.NURSE ---
UNABLE TO COMPLETE [place] SUICIDE SCALE DUE TO PT NOT ANSWERING QUESTION
[2024-07-06 16:51] LABS: Collection Type, Urine Clean Catch
[2024-07-06 17:35] LABS: Bilirubin,Urine Negative (Negative); Blood,Urine Negative (Negative); Clarity,Urine Clear (Clear/Hazy); Color,Urine Yellow (Lt Yel-Yel); Glucose, Urine Negative (Negative); Ketones,Urine Negative (Negative); Leukocyte Esterase,Urine Positive (Negative); Nitrite,Urine Negative (Negative); PH,Urine 6.5 (5.0-7.0); Protein,Urine Negative (Neg - Trace); RBC,Urine 3 /hpf (0-3); Specific Gravity,Urine 1.026 (1.001-1.035); Squamous Epithelial Cell,Urine < 1 /hpf (0-5); WBC,Urine 12 /hpf (0-5)
--- NOTE | 2024-07-06 17:48 | PC.NURSE ---
called [facility] and again asking for the 5150 original paperwork. dispatch to talk with sergeant and get someone out there.
--- NOTE | 2024-07-06 18:16 | EDNOTE_ITS ---
Emergency Room Addendum Addendum Narrative: 1800: Care assumed from Dr. De La Cruz, the previous shift emergency physician. Past medical, surgical, social and family history reviewed. Vitals and home medications reviewed. Results and treatment plan discussed. I will assume the care of the patient at this time and will follow the patient, pending medical clearance for crisis evaluation. Please refer to the emergency department record for history and examination from initial visit. The patient was placed in ED observation care at 07/06/24 at 1800 hours. The patient was placed in ED observation care because of pending psychiatric evaluation. The patients past medical history, social history, and family histor y were reviewed. The plan of care will include serial examinations. Patient is medically clear for crisis evaluation. 0600: Care signed out to Dr. Gonzalez (emergency physician). Past medical, nicole gical, social and family history reviewed. Vitals and home medications reviewed. Results and treatment plan discussed. They will assume the care of the patient at this time and will follow the patient, pending crisis evaluation. At this time, observation has ended.
[2024-07-06 18:23] LABS: Culture Indicated,Urine Yes
[2024-07-06 18:24] LABS: Amphetamine/Methamp Scrn,U Positive (Negative); Barbiturate Screen,Urine Negative (Negative); Benzodiazepines Screen,Urine Negative (Negative); Benzoylecgonine Screen, Ur Negative (Negative); Fentanyl Screen,Urine Negative (Negative); Opiate Screen,Urine Negative (Negative); THC Screen,Urine Negative (Negative)
[2024-07-06 18:29] VITALS: BP 115/78; PULSE 78; RESP 18; TEMP 36.5; O2SAT 100
[2024-07-06 22:52] VITALS: BP 110/78; PULSE 71; RESP 18; TEMP 36.6; O2SAT 100
--- NOTE | 2024-07-07 06:15 | EDNOTE_ITS ---
Emergency Room Addendum <Dian Yeager - Last Filed: 07/07/24 17:25> Addendum Narrative: 0600: Care assumed from Dr. Mccall, the previous shift emergency physician. Past medical, surgical, social and family history reviewed. Vitals and home medications reviewed. I will assume the care of the patient at this time, pending mental health evaluation. Please refer to the emergency department record for history and examination from initial visit.? Physical exam by me shows patient under no acute distress at this time. 0935: Mental health rescinded the psychiatric hold. Safety plan in place. Patient will be discharged. Diagnoses: - Acute psychosis - Methamphetamine abuse <Chas Gonzalez MD - Last Filed: 07/07/24 17:34> Addendum Narrative: 0600: Care assumed from Dr. Mccall, the previous shift emergency physician. Past medical, surgical, social and family history reviewed. Vitals and home medications reviewed. I will assume the care of the patient at this time, pen ding mental health evaluation. Please refer to the emergency department record for history and examination from initial visit.? Physical exam by me shows patient under no acute distress at this time. Patient initially was sleeping woke up and then began answering questions was in no distress. 0935: Mental health rescinded the psychiatric hold. Safety plan in place. Patient will be discharged. Patient advised to stop using methamphetamine. Diagnoses: - Acute psychosis - Methamphetamine abuse
[2024-07-07 06:21] VITALS: BP 116/75; PULSE 65; RESP 18; TEMP 36.6; O2SAT 100
--- NOTE | 2024-07-07 07:15 | PC.NURSE ---
PT CURRENTLY SLEEPING. PER REPORT PT SLEPT AL NIGHT WITH NO BEHAVIORAL PROBLEMS. WILL ASSESS WHEN PT WAKES
--- NOTE | 2024-07-07 07:52 | PC.NURSE ---
dr. pastor in to talk with pt
[2024-07-07 08:30] LABS: Alcohol, Urine Negative (Negative)
[2024-07-07 09:17] VITALS: BP 104/63; PULSE 60; RESP 18; TEMP 36.4; O2SAT 98
--- NOTE | 2024-07-07 09:35 | PC.NURSE ---
per social media marketing analyst hold rescinded.
--- NOTE | 2024-07-07 09:36 | PC.SS ---
Patient is a 69 year-old female who presents to the hospital on a 5150-Hold by [facility], Deputy Kumar for danger to self and gravely disabled. The hold indicates that the patient did not know where she was, walking on the freeway. Caridad GRACE made [id number] contact with patient to complete assessment. ASW?s introduced self, role, and reason for visit. Patient made appropriate eye contact and engaged with ASW during assessment. ASW communicated with patient by speaking loudly as the patient is hard of hearing. ASW also communicated with patient by utilizing paper and confirming information. Patient presents unkempt during this encounter. Patient reports being aware of where she is and aware of who brought her in to the ED. Patient was asked what brought her into the ED. The patient reports that [employer] should have never placed her on a hold. Patient states ?I didn?t do anything?. Patient reports she was placed on a hold because she was unable to communicate with law enforcement and they could not understand her. Patient states she told law enforcement where she was living and they still proceeded with bringing her in to the ED. ASW explained to the patient what the hold stated as she was found to be walking around the freeway. The patient confirmed she was not trying to get herself hurt, patient states she was simply walking as she walks to get to places. Patient reports ?I walked three miles?. Patient denied past suicide attempts. Today, the patient is denying suicidal and homicidal ideations. Patient also denied visual and auditory hallucinations. Patient denied mental health history and reports that she is being followed by Dr. Pace at [facility] for primary care. Patient reports she is ambulatory and does not require use of DME. Patient reports she is currently homeless and living in her car with her significant other Aravind, behind her niece, ?Janette?s house?. Patient confirmed the address listed on the facesheet. Patient reports receiving SSI income. Patient reports history of substance use. Patient?s toxicology report is positive for methamphetamine. Patient denies being connected to any substance use or mental health services, however is agreeable to connect. Patient provided verbal consent to contact her significant other Андрей, son Ronald and nisandra Savage. Collateral contact attempt to patient?s nisandra Savage , however appeared to be a non-working number. Attempted contact with patient?s significant other Андрей and was unsuccessful. Attempted contact at other listed number and was not successful, provided voicemail to both listed numbers. Collateral contact with patient?s son, Ronald . In speaking with Ronald, he reports having no relationship with the patient. Ronald informs the patient is a known ?meth addict? for over 40 years. Per Ronald, the patient had been living in her car with her boyfriend Aravind also known as ?Axel?. Per Ronald, patient receives [employer] income and has a history with dementia and unknown mental health diagnosis. Per Ronald, patient was previously at local [facility] for a hip fracture last year and most recent was residing with his cousin ?Marc in [place]. Per Ronald, he does not want anything to do with the patient, however willing to assist with providing information. Upon clinical consultation with STRINGS TEACHER, Smita Sanford, the patient does not meet criteria for 5150 hold and the current hold will be rescinded. ASW provided the patient with community resources including crisis contact information, local authority information and mental health providers. Patient was scheduled for an appointment with [facility] for 07/15/24 at 9am at the [place] [id number] location for follow up. ASW provided discharge plan update to ED attending, Dr. Gonzalez, and bed side nurse Jackson.
--- NOTE | 2024-07-07 09:39 | PC.NURSE ---
DR. ROSAS INFORMED ABOUT PT BEING CLEARED. SITTER REMOVED FROM PT AND PT GIVEN BELONGINGS BACK. REFUSING VS'S AT THIS TIME
--- NOTE | 2024-07-07 10:27 | PC.SS ---
1020: APS report filed for suspected self-neglect. Verbal report provided to APS warp worker Emilia Pace. GEOVANNI to fax written report.
--- NOTE | 2024-07-08 09:08 | PC.SS ---
SS update: received a call from patient's son Ronald Acuna informing that he found paperwork from when his mother was discharged from [facility] last year during February 2024, per Ronald the diagnoses listed for the patient by the medical provider Aide Parisi is severe Dementia with Agitation, Anxiety Disorder, Mood Disorder, and Schizophrenia Disorder Depressive type.
== END 2024-07-07 09:57 | disposition home or self-care (01) ==
PROVIDERS: Emergency Medicine; Emergency Provider Emergency Medicine
DX: F20.9 Schizophrenia, unspecified (principal); F15.10 Other stimulant abuse, uncomplicated
CPT/HCPCS: 80307; 80320; 81001; 87086; 96127; 99284; G0480

== ENCOUNTER 2024-07-09 15:16 | Emergency (ER) | payer MEDICARE, MEDICAID, SELFPAY ==
[2024-07-09 15:18] VITALS: BP 79/49; PULSE 97; RESP 18; O2SAT 95
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
[2024-07-09 15:20] VITALS: BMI 15.0
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
[2024-07-09] MEDS: RINGERS LACTATED 1000 ML 1,000 ML 999 ML IV (15:47)
[2024-07-09 16:16] LABS: Basophils % (Auto) 1 % (0-2.5); Eosinophils # (Auto) 0.1 Thou/mm3 (0.0-0.5); Eosinophils % (Auto) 1 % (0-10); Hematocrit 36.5 % (36.0-46.0); Hemoglobin 12.4 g/dL (12.0-16.0); Immature Granulocytes % (Auto) 0 % (0-0); Immature Granulocytes Auto 0.01 Thou/mm3 (0.00-0.00); Lymphocytes # (Auto) 2.3 Thou/mm3 (1.0-4.8); Lymphocytes % (Auto) 38 % (10-50); Mean Corpuscular Hemoglobin 29.9 pg (25.0-35.0); Mean Corpuscular Volume 88 fL (80-100); Monocytes # (Auto) 0.4 Thou/mm3 (0.0-0.8); Monocytes % (Auto) 7 % (0-12); Neutrophils # (Auto) 3.2 Thou/mm3 (1.8-7.7); Neutrophils % (Auto) 53 % (37-80); Nucleated Red Blood Cell % 0 /100 WBC (0); Platelet Count 231 Thou/mm3 (140-440); RDW Standard Deviation 45.2 fL (36.4-46.3); Red Blood Count 4.15 Miln/mm3 (4.00-5.20); White Blood Count 6.1 Thou/mm3 (3.6-11.0)
[2024-07-09 16:40] LABS: Acetaminophen < 2.0 mcg/mL (10.0-20.0); Alcohol, Blood Medical < 3.0 mg/dL (0-10.0); Anion Gap 11 (7-16); BUN/Creatinine Ratio 28 Ratio (12-20); Blood Urea Nitrogen 37 mg/dL (9-23); Calcium 10.1 mg/dL (8.3-10.6); Carbon Dioxide 26.7 mMol/L (20.0-31.0); Chloride 108 mMol/L (98-107); Creatinine (Component) 1.3 mg/dL (0.6-1.3); Estimated Creatinine Clearance 25.6 mL/min (>60); Glucose 123 mg/dL (74-106); Osmolality,Calculated 300 (275-295); Potassium 3.6 mMol/L (3.4-5.1); Salicylate < 3.0 mg/dL; Sodium 146 mMol/L (136-145); eGFR 44 See Note
[2024-07-09 17:00] VITALS: BP 139/77; PULSE 63; RESP 18; TEMP 36.3; O2SAT 98
[2024-07-09 17:55] LABS: Collection Type, Urine Clean Catch
[2024-07-09 18:07] LABS: Bilirubin,Urine Negative (Negative); Blood,Urine Trace (Negative); Clarity,Urine Clear (Clear/Hazy); Color,Urine Lt-Yellow (Lt Yel-Yel); Glucose, Urine Negative (Negative); Hyaline Casts,Urine < 1 /hpf (0-1); Ketones,Urine Negative (Negative); Leukocyte Esterase,Urine Positive (Negative); Nitrite,Urine Negative (Negative); PH,Urine 6.5 (5.0-7.0); Protein,Urine Trace (Neg - Trace); RBC,Urine 46 /hpf (0-3); Specific Gravity,Urine 1.017 (1.001-1.035); Squamous Epithelial Cell,Urine 1 /hpf (0-5); Urobilinogen,Urine Negative mg/dL (0.0-1.0); WBC,Urine 31 /hpf (0-5)
[2024-07-09 18:10] LABS: Amphetamine/Methamp Scrn,U Positive (Negative); Barbiturate Screen,Urine Negative (Negative); Benzodiazepines Screen,Urine Negative (Negative); Benzoylecgonine Screen, Ur Negative (Negative); Fentanyl Screen,Urine Negative (Negative); Opiate Screen,Urine Negative (Negative); THC Screen,Urine Negative (Negative)
--- NOTE | 2024-07-09 18:15 | PC.NURSE ---
SANDWICH AND FLUIDS GIVEN.
[2024-07-09 19:15] VITALS: BP 129/78; PULSE 78; RESP 18; TEMP 36.8; O2SAT 96
[2024-07-09] MEDS: cefTRIAXone/D5w 1gm IV premix 1 GM/50 ML BAG IV (23:21)
[2024-07-10 03:00] VITALS: BP 95/58; PULSE 73; RESP 18; TEMP 36.5; O2SAT 96
--- NOTE | 2024-07-10 03:23 | PC.NURSE ---
Pt ambulated with INTERNET MARKETING DIRECTOR sitter to/from restroom. Pt's bed linens changed, fresh water provided.
[2024-07-10 06:29] VITALS: BP 111/72; PULSE 63; RESP 18; TEMP 36.6; O2SAT 99
--- NOTE | 2024-07-10 06:30 | PC.NURSE ---
pt wiped face down with wet wipe. pt was cooperative with vitals. pt ambulated to bathroo, performed own luna care and ambulated back to bed.
--- NOTE | 2024-07-10 06:57 | PD.EDADDENDU ---
Emergency Room Addendum <Mehnaz Smith - Last Filed: 07/10/24 06:57> Addendum Narrative: 0600: Care assumed from Dr. De La Cruz, the previous shift emergency physician. Past medical, surgical, social and family history reviewed. Vitals and home medications reviewed. I will assume the care of the patient at this time, pending mental health evaluation. Please refer to the emergency department record for history and examination from initial visit.?The following addendum documentation note is intended to reflect any pending information, findings, or radiology results not included in the patient?s initial chart. <Allen Angulo MD - Last Filed: 07/10/24 09:01> Addendum Narrative: 0600: Care assumed from Dr. De La Cruz, the previous shift emergency physician. Past medical, surgical, social and family history reviewed. Vitals and home medications reviewed. I will assume the care of the patient at this time, pending mental health evaluation. 0900 Patient was seen and evaluated by Crisis. She is back to her baseline and the hold was reascended. Patient is stable for DC. Please refer to the emergency department record for history and examination from initial visit.?The following addendum documentation note is intended to reflect any pending information, findings, or radiology results not included in the patient?s initial chart.
--- NOTE | 2024-07-10 08:12 | PC.NURSE ---
family welfare social work professor at bedside
[2024-07-10 09:00] VITALS: BP 114/76; PULSE 67; RESP 18; TEMP 36.6; O2SAT 98
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
== END 2024-07-10 09:00 | disposition home or self-care (01) ==
PROVIDERS: Nurse Practitioner Family; Emergency Provider Emergency Medicine; PCP Family Medicine
DX: Z00.8 Encounter for other general examination (principal); N39.0 Urinary tract infection, site not specified; F15.159 Other stimulant abuse with stimulant-induced psychotic disorder, unspecified
CPT/HCPCS: 36415; 80048; 80307; 80320; 80329; 81001; 85025; 90839; 96127; 96361; 96365; 99284; J0696; J7120; G0480

== ENCOUNTER 2024-08-13 17:55 | Emergency (ER) | payer MEDICARE, MEDICAID, SELFPAY ==
[2024-08-13 18:01] VITALS: BP 83/55; PULSE 81; RESP 18; TEMP 36.3; O2SAT 96
[2024-08-13 18:15] VITALS: PULSE 76; RESP 18; O2SAT 98
--- NOTE | 2024-08-13 18:45 | PD.EDAMS ---
Altered Mental Status RME/HPI General Chief Complaint: Altered Mental Status Stated Complaint: ALTERED MENTAL STATUS Time Seen by Provider: 08/13/24 18:37 Arrival date/time: 08/13/24 17:55 RME / HPI RME / HPI narrative: This section includes all my notes and documentations, including HPI, PE, and ED course. Hamilton Calixto MD HPI: 69yo female with a history of schizophrenia, methamphetamine abuse BIBA presents to the ED for possible AMS. Per EMS, patient was [place] wandering [place] [address] [facility] and appeared disoriented. When her blood pressure was checked, it was noted to be low at 98/64, so she was brought in for evaluation. Patient is not providing any history, stating I'm okay then yelling and not answering questions directly. ROS: Can't obtain from the patient due to current clinical condition. Physical Exam: General:? Alert. Normal BP. Eyes:? Conjunctivae and lids clear.? EOMI.? PERRL. ENT:? No signs of trauma. Neck:? Supple.? No tenderness. Heart:? RRR.? Lungs:? No respiratory distress.? Good air movement.? No rhonchi, wheezing, rales.?? Chest:? No tenderness. Abdomen:? Soft and nontender.? Normal bowel sounds.? No distension.? No rebound or guarding.?? Back:? No tenderness.?? Skin:? Warm and dry.?? Neuro:? Alert with uncertain orientation.? Cranial Nerves II-XII grossly intact.? No peripheral motor deficits. Musculoskeletal:? All major joints and bones are not tender with no limited ROM.? I reviewed EMS notes. I reviewed all diagnostic test results. My interpretation of the EKG is sinus rhythm with nonspecific ST-T changes. My interpretation of the chest x-ray is NAD. My review of the CT head report is NAD. My review of the CT cervical spine report is NAD. My review of the CT chest abdomen pelvis report is NAD. Blood tests are unremarkable except for Potassium 3.1. UA showed positive leukocyte Estrace, 4 RBC, 21 WBC. UDS positive for methamphetamine. COVID/influenza negative. At this point, diagnoses include psychosis, methamphetamine use, hypokalemia, and UTI. Treatment here included Potassium Chloride and Macrobid. At 6 AM on 08/14/2024, the care of the patient was transferred to Dr Gonzalez, pending evaluation by our ED healthcare sales representative. Hamilton Calixto MD Related Data Home Medications ?Medication ?Instructions ?Recorded ?Confirmed folic acid 1 mg tablet 1 mg PO QDAY 12/28/23 12/28/23 lisinopril 20 1 tab PO QDAY 12/28/23 12/28/23 mg-hydrochlorothiazide 12.5 mg tablet Previous Rx's ?Medication ?Instructions ?Recorded nicotine 14 mg/24 hr daily 14 mg top QDAY #7 ea 01/04/24 transdermal patch quetiapine 50 mg tablet 50 mg PO BID #60 tabs 01/04/24 cephalexin 500 mg capsule 500 mg PO QID #14 caps 07/10/24 Allergies Allergy/AdvReac Type Severity Reaction Status Date / Time No Known Allergies Allergy Verified 07/09/24 15:33 Review of Systems Review of Systems Systems Reviewed: All systems reviewed, normal except as documented Past Medical History Past Medical History NEUROLOGIC: Positive Neurological Disorders and Dementia CARDIAC: Positive Cardiac Disorders and Hypertension; Negative Congestive Heart Failure RESPIRATORY: Positive Asthma; Negative Chronic Obstructive Pulmonary Disease (COPD) GENITOURINARY: Negative Renal Disease MUSCULOSKELETAL: Positive Musculoskeletal Disorders and Rheumatoid Arthritis ENDOCRINE: Positive Endocrine Disorders; Negative Diabetes Mellitus Type 1 or Diabetes Mellitus Type 2 HEMATOLOGIC: Negative Sickle Cell Disease PSYCHO/SOCIAL: Positive Schizophrenia OTHER HISTORY: Negative Anesthesia Reactions Social History SMOKING STATUS: Unknown if ever smoked SECOND HAND EXPOSURE: Yes SUBSTANCE USE: methamphetamine (hx) ED Exam Narrative Physical exam: As noted in HPI. Course Quality Measures none Orders Category Date Time Status Bedside COVID-19 Antigen Test NOW Care 08/13/24 18:46 Active Bedside Influenza A&B Antigen Test NOW Care 08/13/24 18:46 Completed EKG (ED ONLY) *Do not use* NOW Care 08/13/24 18:46 Completed Saline [Insert IV] NOW Care 08/13/24 18:46 Active Straight [In and Out Catheter] X1 Care 08/13/24 18:46 Active Referral Psych Eval Stat Cons 08/13/24 22:[address] cervical spine wo con Stat Exams 08/13/24 18:[address] chest abdomen pelvis wo Stat Exams 08/13/24 18:[address] head/brain wo con Stat Exams 08/13/24 18:47 Completed EKG (ED Only) Stat Exams 08/13/24 18:46 Draft XR chest 1V portable Stat Exams 08/13/24 18:46 Completed Acetaminophen Stat Lab 08/13/24 19:20 Completed Alcohol, Blood Medical Stat Lab 08/13/24 19:20 Completed Ammonia Stat Lab 08/13/24 19:26 Completed BNP [B-Type Natriuretic Peptide] Stat Lab 08/13/24 19:26 Completed Bilirubin,Direct Stat Lab 08/13/24 19:20 Completed Blood Culture (Lab) Stat Lab 08/13/24 19:26 Received CBC Stat Lab 08/13/24 19:26 Completed CK [Creatine Kinase] Stat Lab 08/13/24 19:20 Completed CMP [Comprehensive Metabolic Panel] Stat Lab 08/13/24 19:20 Completed CRP [C-Reactive Protein] Stat Lab 08/13/24 19:20 Completed Drug Screen,Urine Stat Lab 08/14/24 03:15 Completed ESR [Sed Rate (ESR)] Stat Lab 08/13/24 19:26 Completed Free T4 (Free Thyroxine) Stat Lab 08/13/24 19:20 Completed Lactate (Lactic Acid) Stat Lab 08/13/24 19:26 Completed Magnesium Stat Lab 08/13/24 19:20 Completed PT [Prothrombin Time with INR] Stat Lab 08/13/24 19:26 Completed PTT [Partial Thromboplastin Time] Stat Lab 08/13/24 19:26 Completed Procalcitonin Stat Lab 08/13/24 19:20 Completed Salicylate Stat Lab 08/13/24 19:20 Completed Thyroid Stimulating Hormone Stat Lab 08/13/24 19:20 Completed Troponin I Stat Lab 08/13/24 19:20 Completed UA, C/S IF [Urinalysis, C/S if Indicated] Stat Lab 08/14/24 03:15 Completed Urine Culture Stat Lab 08/14/24 03:15 Received VBG [Venous Blood Gas] Stat Lab 08/13/24 19:26 Completed KCL 10% Liq UDC 15 ML Med 08/13/24 22:04 Discontinued 40 meq PO X1 ONE Nitrofurantoin Macro [Macrobid] Med 08/14/24 04:25 Discontinued 100 mg PO X1 ONE Sodium Chloride 0.9% 1000 ml [Ns] 1,000 ml Med 08/13/24 18:46 Discontinued IV 999 mls/hr Vital Signs Vital signs: Vital Signs Temperature 97.4 F 08/13/24 18:01 Pulse Rate 81 06/05/25 18:01 Respiratory Rate 18 08/13/24 18:01 Blood Pressure 83/55 L 08/13/24 18:01 Pulse Oximetry (%) 96 08/13/24 18:01 Oxygen Delivery Method Room Air 08/13/24 18:01 Altered Mental Status MDM Narrative MDM Narrative:: Scribe Attestation: 08/13/24 - Hiral Villalobos am scribing for and in the presence of Dr. Calixto. 69yo female with a history of schizophrenia, methamphetamine abuse BIBA presents to the ED for a chief complaint of AMS. Per EMS, patient was [place] [address] [place] [employer] and appeared disoriented. When her blood pressure was checked, it was noted to be low at 98/64, so she was brought in for evaluation. Patient is not providing any history, stating I'm okay . No other complaints reported. 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 Hamilton Calixto MD) Lab and/or radiology exams considered but not ordered:: none Interpretation Summary: I reviewed all diagnostic test results. My interpretation of the EKG is sinus rhythm with nonspecific ST-T changes. My interpretation of the chest x-ray is NAD. My review of the CT head report is NAD. My review of the CT cervical spine report is NAD. My review of the CT chest abdomen pelvis report is NAD. Blood tests are unremarkable except for Potassium 3.1. UA showed positive leukocyte Estrace, 4 RBC, 21 WBC. UDS positive for methamphetamine. COVID/influenza negative. Medications / Prescriptions Medications or Prescriptions considered but not ordered:: none Medication administrations:: Medication Administration History Discontinued Medications Sodium Chloride (Ns) 1,000 mls @ 999 mls/hr IV .Q1H1M ONE Stop: 08/13/24 19:46 Last Admin: 08/13/24 22:56 Dose: Not Given Documented By: KATIUSKA Non-Admin Reason: Other, see note Nitrofurantoin Macrocrystals (Nitrofurantoin Macro 100 Mg Capsule) 100 mg PO X1 ONE Stop: 08/14/24 04:26 Potassium Chloride (Potassium Chloride 10% 20 Meq/15 Ml Udc) 40 meq PO X1 ONE Stop: 08/13/24 22:05 Last Admin: 08/13/24 22:59 Dose: 40 meq Documented By: KATIUSKA Potassium Chloride and Macrobid. Consultations Consultation(s) initiated? (list below): No Diagnosis Differential diagnosis altered mental status: alcoholic intoxication, altered mental status, delirium, dementia, hypoglycemia, hyponatremia, subarachnoid hemorrhage, sepsis and other (Psychosis) Most likely diagnosis given after review of the tests above:: At this point, diagnoses include psychosis, methamphetamine use, hypokalemia, and UTI. Admission Indicated Admission indicated?: not indicated Explain why admission is indicated or not indicated:: At 6 AM on 08/14/2024, the care of the patient was transferred to Dr Gonzalez, pending evaluation by our ED healthcare sales representative. Admission Request Was there a request for admission?: No Disposition Plan Disposition Plan: other (specify) (At 6 AM on 08/14/2024, the care of the patient was transferred to Dr Gonzalez, pending evaluation by our ED healthcare sales representative.) Discharge Plan Prescriptions/Referrals Prescriptions/Med Rec: No Action folic acid 1 mg tablet 1 mg PO QDAY Patient Comments: TAKE 1 TABLET BY MOUTH EVERY DAY lisinopril-hydrochlorothiazide 20-12.5 mg tablet 1 tab PO QDAY Patient Comments: TAKE 1 TABLET BY MOUTH EVERY DAY nicotine 14 mg/24 hr Patch 24 Hour 14 mg top QDAY Qty: 7 0RF quetiapine 50 mg tablet 50 mg PO BID Qty: 60 0RF cephalexin 500 mg capsule 500 mg PO QID Qty: 14 0RF Referrals: No Primary/Family,Physician [Referring Provider] - In 1 week Problem List Clinical Impression: Psychosis, UTI (urinary tract infection), Methamphetamine use Patient/Caregiver Discharge Instructions Print Language: Libyan
--- NOTE | 2024-08-13 18:46 | EKG_ITS ---
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1955 Requested By: Hamilton Durán Order Number: [id number] Reading MD: Hamilton Durán Measurements Intervals [place] Rate: 62 P: 69 UT: 166 QRS: 44 QRSD: 106 T: 55 QT: 424 QTc: 433 Interpretive Statements SINUS RHYTHM MODERATE INTRAVENTRICULAR CONDUCTION DELAY [105+ ms QRS DURATION, 80+ ms Q/S IN V1/V2, NO Q AND 60+ ms R IN I/aVL/V5/V6] MINIMAL VOLTAGE CRITERIA FOR LVH, CONSIDER NORMAL VARIANT [MEETS CRITERIA IN ONE OF: R(aVL), S(V1), R(V5), R(V5/V6)+S(V1)] Compared to ECG 12/28/2023 15:11:17 Intraventricular conduction delay now present T-wave abnormality no longer present /store/S0/[id number]/ecg/[id number].pdf
--- NOTE | 2024-08-13 18:46 | XR_ITS ---
Examination: CT cervical spine without contrast 2-D sagittal reconstructions 2-D coronal reconstructions 3-D reconstructions. Exam date and time:August 13, 2024 1944 hours INDICATIONS: Patient fell today with image of the neck, neck pain CTDI:vol (mGy) 6.18 DLP: (mGycm) 137 Technique: Multiple 2 mm axial sections of the cervical spine have been obtained. The coronal and sagittal reconstructions have been obtained. 3-D reconstructions have been obtained. Low dose protocols were performed. One or more of the following dose reduction techniques were used; automated exposure control, adjustment of the mA and/or KV according to patient size, use of iterative reconstruction technique. Findings: Axial sections demonstrate intact base of the skull. C1 exhibit satisfactory relationship to the odontoid. No acute cervical vertebral body fracture seen. Alignment posterior spinous processes satisfactory. Impression: No acute cervical fracture.
--- NOTE | 2024-08-13 18:46 | XR_ITS ---
Examination: AP chest single view TECHNIQUE: AP portable upright chest single view Date and time: August 13, 2024 1854 hours Comparison December 28, 2023 INDICATIONS: Shortness of breath today. FINDINGS: Normal heart size. Accentuation of basilar bronchovascular markings No pulmonary edema or pneumonia Prominent osteopenia IMPRESSION: Basilar bronchitis pattern
--- NOTE | 2024-08-13 18:47 | XR_ITS ---
Examination: CT chest, without intravenous contrast. CT abdomen, without intravenous contrast. CT pelvis, without intravenous contrast. 2-D sagittal and coronal reconstructions. 3-D reconstructions. Date and time of exam:August 13, 2024 1950 hours INDICATIONS: Patient fell today with injury of the chest and abdomen, chest pain and abdomen pain CTDI vol (mgy) 4 DLP (MGycm)297 Technique: Multiple CT images, 3.0 mm slice thickness, obtained chest, abdomen, pelvis, with the high-resolution 64 slice scanner.. Sagittal and coronal 2-D reconstructions are obtained. 3-D reconstructions Low dose protocols were performed. One or more of the following dose reduction techniques were used; automated exposure control, adjustment of the mA and/or KV according to patient size, use of iterative reconstruction technique. Findings: Thoracic aorta pulmonary arteries intact No hemopericardium COPD with areas of airspace destruction Restrictive airspace disease pattern with subtle opacity throughout the lungs The manubrium, the body of the sternum intact No thoracic acute compression fracture Advanced degenerative disc disease lower lumbar levels Sacral segments lumbar vertebral bodies intact Ribs appear intact although assessment is limited given the patient's motion No liver or splenic or renal laceration Abdominal aorta intact, no free blood in the abdomen Negative for pneumoperitoneum Urinary bladder intact Lobes of the pelvis hips intact with left hip hemiarthroplasty IMPRESSION: COPD. Restrictive airways disease. Thoracic aorta and pulmonary arteries intact. No hemopericardium, pneumothorax or pulmonary contusion. No abdominal parenchymal laceration Abdominal aorta intact. No free blood in the abdomen or pelvis
--- NOTE | 2024-08-13 18:47 | XR_ITS ---
Examination: CT brain head without contrast. 2-D sagittal coronal reconstructions Date and time of exam:August 13, 2024 1944 hours INDICATIONS: Patient fell today with injury to the head, head pain and altered mental status CTDI: vol (mGy):45 DLP: (mGycm):914 Technique: Multiple CT axial sections of the brain have been obtained, 5 mm slice thickness. Contrast has not been administered. 2-D sagittal, coronal reconstructions have been obtained Low dose protocols were performed. One or more of the following dose reduction techniques were used; automated exposure control, adjustment of the mA and/or KV according to patient size, use of iterative reconstruction technique. Findings: No significant ventricular enlargement. Intra-axial or extra-axial hemorrhage density is not seen. No mass effect or midline shift Basal cisterns are not remarkable. Fourth ventricle is midline. Cranial vault intact. Impression: Negative for acute hemorrhage, mass effect or midline shift
[2024-08-13 19:34] LABS: Base Excess, Venous 4 (-3-3); Lactate (Lactic Acid) 1.2 mMol/L (0.4-2.0); O2 Saturation, Venous 49 % (96-97); PCO2, Venous 47 mmHg (36-56); PO2, Venous 26 mmHg (15-58); pH, Venous 7.41 (7.33-7.66)
[2024-08-13 19:36] LABS: Basophils % (Auto) 1 % (0-2.5); Eosinophils # (Auto) 0.1 Thou/mm3 (0.0-0.5); Eosinophils % (Auto) 2 % (0-10); Immature Granulocytes % (Auto) 0 % (0-0); Immature Granulocytes Auto 0.03 Thou/mm3 (0.00-0.00); Lymphocytes # (Auto) 1.5 Thou/mm3 (1.0-4.8); Lymphocytes % (Auto) 20 % (10-50); Mean Corpuscular HGB Conc 34.3 g/dl (31.0-37.0); Mean Corpuscular Hemoglobin 30.5 pg (25.0-35.0); Mean Corpuscular Volume 89 fL (80-100); Monocytes # (Auto) 0.7 Thou/mm3 (0.0-0.8); Monocytes % (Auto) 10 % (0-12); Neutrophils # (Auto) 4.9 Thou/mm3 (1.8-7.7); Neutrophils % (Auto) 67 % (37-80); Nucleated Red Blood Cell % 0 /100 WBC (0); Platelet Count 182 Thou/mm3 (140-440); RDW Standard Deviation 47.6 fL (36.4-46.3); Red Blood Count 3.94 Miln/mm3 (4.00-5.20); White Blood Count 7.2 Thou/mm3 (3.6-11.0)
[2024-08-13 19:45] LABS: Sed Rate (ESR) 20 mm/hr (0-30)
[2024-08-13 19:50] LABS: Partial Thromboplastin Time 26.4 Seconds (22.0-36.0); Prothrombin Time 11.3 Seconds (9.0-12.2)
[2024-08-13 19:53] LABS: Ammonia < 10 uMol/L (11-32)
[2024-08-13 20:03] LABS: B-Type Natriuretic Peptide 72 pg/mL (0-100)
[2024-08-13 20:22] VITALS: BP 108/57; PULSE 72; RESP 17; O2SAT 99
[2024-08-13 20:40] LABS: Acetaminophen < 2.0 mcg/mL (10.0-20.0); Alanine Aminotransferase 8 U/L (10-49); Albumin, Serum 3.7 gm/dL (3.4-4.8); Albumin/Globulin Ratio 1.6 (1.2-2.2); Alcohol, Blood Medical < 3.0 mg/dL (0-10.0); Alkaline Phosphatase 42 U/L (46-116); Anion Gap 10 (7-16); Aspartate Amino Transferase 13 U/L (0-34); BUN/Creatinine Ratio 27 Ratio (12-20); Bilirubin,Direct < 0.1 mg/dL (0.0-0.3); Bilirubin,Total 0.2 mg/dL (0.3-1.2); Blood Urea Nitrogen 35 mg/dL (9-23); C-Reactive Protein < 0.5 mg/dL (0.0-0.9); Calcium (Corrected) 9.2 mg/dL (8.5-10.1); Carbon Dioxide 30.6 mMol/L (20.0-31.0); Chloride 108 mMol/L (98-107); Creatine Kinase 50 U/L (34-171); Creatinine (Component) 1.3 mg/dL (0.6-1.3); Globulin 2.3 gm/dL (2.3-3.5); Glucose 96 mg/dL (74-106); Magnesium 1.9 mg/dL (1.6-2.6); Osmolality,Calculated 304 (275-295); Potassium 3.1 mMol/L (3.4-5.1); Procalcitonin 0.06 ng/ml (0.0-0.49); Salicylate < 3.0 mg/dL; Sodium 149 mMol/L (136-145); Thyroid Stimulating Hormone 2.82 uIU/mL (0.55-4.78); Troponin I < 0.002 ng/mL (0.0-0.045); eGFR 44 See Note
[2024-08-13 21:22] VITALS: BP 125/64; PULSE 68; RESP 17; O2SAT 98
--- NOTE | 2024-08-13 21:25 | PC.NURSE ---
MADE AWARE OF UNABLE TO GET IV AT THIS TIME, PATIENT'S CURRENT BLOOD PRESSURE IF 125/64. PER DR. SIMMS, DR. SIMMS TO CANCEL IV FLUIDS AND PATIENT MAY EAT AND DRINK.
--- NOTE | 2024-08-13 22:00 | PC.NURSE ---
PATIENT REFUSING IN AND OUT CATHETER, PATIENT STATING THAT SHE WILL NOTIFY STAFF WHEN SHE NEEDS TO URINATE.
[2024-08-13] MEDS: POTASSIUM CHLORIDE 10% 20 MEQ/15 ML UDC 40 MEQ PO (22:59)
[2024-08-13 23:12] VITALS: BP 111/61; PULSE 59; RESP 19; O2SAT 99
[2024-08-14 01:16] VITALS: BP 104/63; PULSE 58; RESP 17; O2SAT 98
[2024-08-14 03:17] VITALS: BP 99/63; PULSE 60; RESP 17; TEMP 36.4; O2SAT 99
--- NOTE | 2024-08-14 03:21 | PC.NURSE ---
PATIENT AMBULATED TO RESTROOM WITH STAFF ASSISTANCE.
[2024-08-14 03:34] LABS: Collection Type, Urine Clean Catch
[2024-08-14 03:58] LABS: Bilirubin,Urine Negative (Negative); Blood,Urine Negative (Negative); Clarity,Urine Clear (Clear/Hazy); Color,Urine Yellow (Lt Yel-Yel); Glucose, Urine Negative (Negative); Ketones,Urine Negative (Negative); Leukocyte Esterase,Urine Positive (Negative); Nitrite,Urine Negative (Negative); PH,Urine 6.5 (5.0-7.0); Protein,Urine Trace (Neg - Trace); RBC,Urine 4 /hpf (0-3); Specific Gravity,Urine 1.024 (1.001-1.035); Squamous Epithelial Cell,Urine < 1 /hpf (0-5); WBC,Urine 21 /hpf (0-5)
[2024-08-14 04:00] LABS: Culture Indicated,Urine Yes
[2024-08-14 04:07] LABS: Amphetamine/Methamp Scrn,U Positive (Negative); Barbiturate Screen,Urine Negative (Negative); Benzodiazepines Screen,Urine Negative (Negative); Benzoylecgonine Screen, Ur Negative (Negative); Fentanyl Screen,Urine Negative (Negative); Opiate Screen,Urine Negative (Negative); THC Screen,Urine Negative (Negative)
[2024-08-14] MEDS: NITROFURANTOIN MACRO 100 MG CAPSULE PO (04:51)
[2024-08-14 05:07] VITALS: BP 113/67; PULSE 60; RESP 18; O2SAT 97
--- NOTE | 2024-08-14 06:25 | EDNOTE_ITS ---
Emergency Room Addendum <Dian Yeager - Last Filed: 08/14/24 08:31> Addendum Narrative: 0600: Care assumed from Dr. Calixto, the previous shift emergency physician. Past medical, surgical, social and family history reviewed. Vitals and home medications reviewed. I will assume the care of the patient at this time. Please refer to the emergency department record for history and examination from initial visit.? Physical exam by me shows patient under no acute distress at this time. 0830: Patient eloped. Normal gait. <Chas Gonzalez MD - Last Filed: 08/14/24 08:37> Addendum Narrative: 0600: Care assumed from Dr. Calixto, the previous shift emergency physician. Past medical, surgical, social and family history reviewed. Vitals and home medications reviewed. I will assume the care of the patient at this time. Please refer to the emergency department record for history and examination from initial visit.? Physical exam by me shows patient under no acute distress at this time. Patient was comfortable sleeping this morning has no distress she woke up and says she wanted to leave she was ambulatory without any assistance and to be basically walked out on her own. Note this patient was not on a 1799 or 5150 hold Notes she did have labs that she appears to be gravely disabled or psychotic with a past history and current history of methamphetamine induced psychosis but medically she appears to be clear of her psychosis at the time she got up and walked out. Notes she does have some pyuria and a nonclean-catch specimen of uncertain significance. Also her potassium is minimally low at 3.1 and probably little dehydrated as her sodium is 149. Patient is capable of walking ensure she can hydrate yourself and she decided to leave without informing us anyway. 0830: Patient eloped. Normal gait. Results <Dian Yeager - Last Filed: 08/14/24 08:31> Objective Laboratory: Laboratory Last Values WBC 7.2 Thou/mm3 (3.6-11.0) 08/13/24 19:26 RBC 3.94 Miln/mm3 (4.00-5.20) L 08/13/24 19:26 Hgb 12.0 g/dL (12.0-16.0) 08/13/24 19: Hct 35.0 % (36.0-46.0) L 08/13/24 19:26 MCV 89 fL (80-100) 08/13/24 19:26 MCH 30.5 pg (25.0-35.0) 08/13/24 19:26 MCHC 34.3 g/dl (31.0-37.0) 08/13/24 19:26 RDW Std Deviation 47.6 fL (36.4-46.3) H 08/13/24 19:26 Plt Count 182 Thou/mm3 (140-440) D 08/13/24 19:26 Neut % (Auto) 67 % (37-80) 08/13/24 19:26 Lymph % (Auto) 20 % (10-50) 08/13/24 19:26 [place] % (Auto) 10 % (0-12) 08/13/24 19:26 Eos % (Auto) 2 % (0-10) 08/13/24 19:26 Baso % (Auto) 1 % (0-2.5) 08/13/24 19:26 Neut # (Auto) 4.9 Thou/mm3 (1.8-7.7) 08/13/24 19:26 Lymph # (Auto) 1.5 Thou/mm3 (1.0-4.8) 08/13/24 19:26 [place] # (Auto) 0.7 Thou/mm3 (0.0-0.8) 08/13/24 19:26 Eos # (Auto) 0.1 Thou/mm3 (0.0-0.5) 08/13/24 19:26 Baso # (Auto) 0.0 Thou/mm3 (0.0-0.2) 08/13/24 19:26 Immature Gran # (Auto) 0.03 Thou/mm3 (0.00-0.00) H 08/13/24 19:26 Absolute Nucleated RBC 0.00 Thou/mm3 (0.00-0.00) 08/13/24 19:26 Immature Gran % 0 % (0-0) 08/13/24 19: Nucleated RBC % 0 /100 WBC (0) 08/13/24 19:26 ESR 20 mm/hr (0-30) 08/13/24 19:26 PT 11.3 Seconds (9.0-12.2) 08/13/24 19:26 INR 1.0 (0.9-1.3) 08/13/24 19:26 APTT 26.4 Seconds (22.0-36.0) 08/13/24 19: VBG pH 7.41 (7.33-7.66) 08/13/24 19:26 VBG pCO2 47 mmHg (36-56) 08/13/24 19: VBG pO2 26 mmHg (15-58) 08/13/24 19: VBG O2 Sat (Carla) 49 % (96-97) L 08/13/24 19:26 VBG Base Excess 4 (-3-3) H 08/13/24 19:26 Sodium 149 mMol/L (136-145) H 08/13/24 19:20 Potassium 3.1 mMol/L (3.4-5.1) L 08/13/24 19:20 Chloride 108 mMol/L (98-107) H 08/13/24 19:20 Carbon Dioxide 30.6 mMol/L (20.0-31.0) 08/13/24 19:20 Anion Gap 10 (7-16) 08/13/24 19:20 BUN 35 mg/dL (9-23) H 08/13/24 19:20 Creatinine 1.3 mg/dL (0.6-1.3) 08/13/24 19:20 Estim Creat Clear Calc Not Performed. 08/13/24 19:20 eGFR 44 See Note (60-) L 08/13/24 19:20 BUN/Creatinine Ratio 27 Ratio (12-20) H 08/13/24 19:20 Glucose 96 mg/dL (74-106) 08/13/24 19:20 Calculated Osmolality 304 (275-295) H 08/13/24 19:20 Lactic Acid 1.2 mMol/L (0.4-2.0) 08/13/24 19:26 Calcium 9.0 mg/dL (8.3-10.6) 08/13/24 19:20 Corrected Calcium 9.2 mg/dL (8.5-10.1) 08/13/24 19:20 Magnesium 1.9 mg/dL (1.6-2.6) 08/13/24 19:20 Total Bilirubin 0.2 mg/dL (0.3-1.2) L 08/13/24 19:20 Direct Bilirubin < 0.1 mg/dL (0.0-0.3) 08/13/24 19:20 AST 13 U/L (0-34) 08/13/24 19:20 ALT 8 U/L (10-49) L 08/13/24 19:20 Alkaline Phosphatase 42 U/L (46-116) L 08/13/24 19:20 Ammonia < 10 uMol/L (11-32) L 08/13/24 19:26 Total Creatine Kinase 50 U/L (34-171) 08/13/24 19:20 Troponin I < 0.002 ng/mL (0.0-0.045) 08/13/24 19:20 C-Reactive Prot, Quant < 0.5 mg/dL (0.0-0.9) 08/13/24 19:20 B-Natriuretic Peptide 72 pg/mL (0-100) 08/13/24 19:26 Total Protein 6.0 gm/dL (5.7-8.2) 08/13/24 19:20 Albumin 3.7 gm/dL (3.4-4.8) 08/13/24 19:20 Globulin 2.3 gm/dL (2.3-3.5) 08/13/24 19:20 Albumin/Globulin Ratio 1.6 (1.2-2.2) 08/13/24 19:20 Procalcitonin 0.06 ng/ml (0.0-0.49) 08/13/24 19:20 TSH 2.82 uIU/mL (0.55-4.78) 08/13/24 19:20 Free T4 1.40 ng/dL (0.89-1.76) 08/13/24 19:20 Ur Collection Type Clean Catch 08/14/24 03:15 Urine Color Yellow (Lt Yel-Yel) 08/14/24 03:15 Urine Clarity Clear (Clear/Hazy) 08/14/24 03:15 Urine pH 6.5 (5.0-7.0) 08/14/24 03:15 Ur Specific [place] 1.024 (1.001-1.035) 08/14/24 03:15 Urine Protein Trace (Neg - Trace) 08/14/24 03:15 Urine Glucose (UA) Negative (Negative) 08/14/24 03:15 Urine Ketones Negative (Negative) 08/14/24 03:15 Urine Blood Negative (Negative) 08/14/24 03:15 Urine Nitrite Negative (Negative) 08/14/24 03:15 Urine Bilirubin Negative (Negative) 08/14/24 03:15 Urine Urobilinogen (Auto) 2.0 mg/dL (0.0-1.0) 08/14/24 03:15 Ur Leukocyte Esterase Positive (Negative) 08/14/24 03:15 Urine RBC 4 /hpf (0-3) H 08/14/24 03:15 Urine WBC 21 /hpf (0-5) H 08/14/24 03:15 Ur Squamous Epith Cells < 1 /hpf (0-5) 08/14/24 03:15 Urine Bacteria None (None) 08/14/24 03:15 Ur Culture Indicated? Yes 08/14/24 03:15 Salicylates < 3.0 mg/dL 08/13/24 19:20 Urine Opiates Screen Negative (Negative) 08/14/24 03:15 Urine Fentanyl Screen Negative (Negative) 08/14/24 03:15 Acetaminophen < 2.0 mcg/mL (10.0-20.0) L 08/13/24 19:20 Ur Barbiturates Screen Negative (Negative) 08/14/24 03:15 U Amphetamin/Meth Scrn Positive (Negative) A 08/14/24 03:15 U Benzodiazepines Scrn Negative (Negative) 08/14/24 03:15 U Cocaine Metab Screen Negative (Negative) 08/14/24 03:15 U Marijuana (THC) Screen Negative (Negative) 08/14/24 03:15 Ethyl Alcohol < 3.0 mg/dL (0-10.0) 08/13/24 19:20 Imaging: Procedure(s): CT cervical spine wo con Accession Number(s): [id number] cc: Tom Pace MD; Hamilton Calixto MD; Patrick Brewer MD~ Examination: CT cervical spine without contrast 2-D sagittal reconstructions 2-D coronal reconstructions 3-D reconstructions. Exam date and time:August 13, 2024 1944 hours INDICATIONS: Patient fell today with image of the neck, neck pain CTDI:vol (mGy) 6.18 DLP: (mGycm) 137 Technique: Multiple 2 mm axial sections of the cervical spine have been obtained. The coronal and sagittal reconstructions have been obtained. 3-D reconstructions have been obtained. Low dose protocols were performed. One or more of the following dose reduction techniques were used; automated exposure control, adjustment of the mA and/or KV according to patient size, use of iterative reconstruction technique. Findings: Axial sections demonstrate intact base of the skull. C1 exhibit satisfactory relationship to the odontoid. No acute cervical vertebral body fracture seen. Alignment posterior spinous processes satisfactory. Impression: No acute cervical fracture. Dictated By: Patrick Brewer MD Procedure(s): XR chest 1V portable Accession Number(s): [id number] cc: Hamilton Calixto MD; Patrick Brewer MD; NO PRIMARY/FAMILY,PHYSICIAN~ Examination: AP chest single view TECHNIQUE: AP portable upright chest single view Date and time: August 13, 2024 1854 hours Comparison December 28, 2023 INDICATIONS: Shortness of breath today. FINDINGS: Normal heart size. Accentuation of basilar bronchovascular markings No pulmonary edema or pneumonia Prominent osteopenia IMPRESSION: Basilar bronchitis pattern Dictated By: Patrick Brewer MD Procedure(s): CT chest abdomen pelvis wo Accession Number(s): [id number] cc: Tom Pace MD; Hamilton Calixto MD; aPtrick Brewer MD~ Examination: CT chest, without intravenous contrast. CT abdomen, without intravenous contrast. CT pelvis, without intravenous contrast. 2-D sagittal and coronal reconstructions. 3-D reconstructions. Date and time of exam:August 13, 2024 1950 hours INDICATIONS: Patient fell today with injury of the chest and abdomen, chest pain and abdomen pain CTDI vol (mgy) 4 DLP (MGycm)297 Technique: Multiple CT images, 3.0 mm slice thickness, obtained chest, abdomen, pelvis, with the high-resolution 64 slice scanner.. Sagittal and coronal 2-D reconstructions are obtained. 3-D reconstructions Low dose protocols were performed. One or more of the following dose reduction techniques were used; automated exposure control, adjustment of the mA and/or KV according to patient size, use of iterative reconstruction technique. Findings: Thoracic aorta pulmonary arteries intact No hemopericardium COPD with areas of airspace destruction Restrictive airspace disease pattern with subtle opacity throughout the lungs The manubrium, the body of the sternum intact No thoracic acute compression fracture Advanced degenerative disc disease lower lumbar levels Sacral segments lumbar vertebral bodies intact Ribs appear intact although assessment is limited given the patient's motion No liver or splenic or renal laceration Abdominal aorta intact, no free blood in the abdomen Negative for pneumoperitoneum Urinary bladder intact Lobes of the pelvis hips intact with left hip hemiarthroplasty IMPRESSION: COPD. Restrictive airways disease. Thoracic aorta and pulmonary arteries intact. No hemopericardium, pneumothorax or pulmonary contusion. No abdominal parenchymal laceration Abdominal aorta intact. No free blood in the abdomen or pelvis Dictated By: Patrick Brewer MD Procedure(s): CT head/brain wo con Accession Number(s): [id number] cc: Tom Pace MD; Hamilton Calixto MD; Patrick Brewer MD~ Examination: CT brain head without contrast. 2-D sagittal coronal reconstructions Date and time of exam:August 13, 2024 1944 hours INDICATIONS: Patient fell today with injury to the head, head pain and altered mental status CTDI: vol (mGy):45 DLP: (mGycm):914 Technique: Multiple CT axial sections of the brain have been obtained, 5 mm slice thickness. Contrast has not been administered. 2-D sagittal, coronal reconstructions have been obtained Low dose protocols were performed. One or more of the following dose reduction techniques were used; automated exposure control, adjustment of the mA and/or KV according to patient size, use of iterative reconstruction technique. Findings: No significant ventricular enlargement. Intra-axial or extra-axial hemorrhage density is not seen. No mass effect or midline shift Basal cisterns are not remarkable. Fourth ventricle is midline. Cranial vault intact. Impression: Negative for acute hemorrhage, mass effect or midline shift Dictated By: Patrick Brewer MD <Chas Gonzalez MD - Last Filed: 08/14/24 08:37> Objective Laboratory: Laboratory Last Values WBC 7.2 Thou/mm3 (3.6-11.0) 08/13/24 19: RBC 3.94 Miln/mm3 (4.00-5.20) L 08/13/24 19: Hgb 12.0 g/dL (12.0-16.0) 08/13/24: Hct 35.0 % (36.0-46.0) L 08/13/24 19: MCV 89 fL (80-100) 08/13/24 19: MCH 30.5 pg (25.0-35.0) 08/13/24 19: MCHC 34.3 g/dl (31.0-37.0) 08/13/24 19: RDW Std Deviation 47.6 fL (36.4-46.3) H 08/13/24 19:26 Plt Count 182 Thou/mm3 (140-440) D 08/13/24 19:26 Neut % (Auto) 67 % (37-80) 08/13/24 19:26 Lymph % (Auto) 20 % (10-50) 08/13/24 19:26 [place] % (Auto) 10 % (0-12) 08/13/24 19:26 Eos % (Auto) 2 % (0-10) 08/13/24 19:26 Baso % (Auto) 1 % (0-2.5) 08/13/24 19:26 Neut # (Auto) 4.9 Thou/mm3 (1.8-7.7) 08/13/24 19:26 Lymph # (Auto) 1.5 Thou/mm3 (1.0-4.8) 08/13/24 19:26 [place] # (Auto) 0.7 Thou/mm3 (0.0-0.8) 08/13/24 19:26 Eos # (Auto) 0.1 Thou/mm3 (0.0-0.5) 08/13/24 19:26 Baso # (Auto) 0.0 Thou/mm3 (0.0-0.2) 08/13/24 19:26 Immature Gran # (Auto) 0.03 Thou/mm3 (0.00-0.00) H 08/13/24 19:26 Absolute Nucleated RBC 0.00 Thou/mm3 (0.00-0.00) 08/13/24 19:26 Immature Gran % 0 % (0-0) 08/13/24 19:26 Nucleated RBC % 0 /100 WBC (0) 08/13/24 19:26 ESR 20 mm/hr (0-30) 08/13/24 19:26 PT 11.3 Seconds (9.0-12.2) 08/13/24 19: INR 1.0 (0.9-1.3) 08/13/24 19:26 APTT 26.4 Seconds (22.0-36.0) 08/13/24 19:26 VBG pH 7.41 (7.33-7.66) 08/13/24 19:26 VBG pCO2 47 mmHg (36-56) 08/13/24 19:26 VBG pO2 26 mmHg (15-58) 08/13/24 19:26 VBG O2 Sat (Carla) 49 % (96-97) L 08/13/24 19:26 VBG Base Excess 4 (-3-3) H 08/13/24 19:26 Sodium 149 mMol/L (136-145) H 08/13/24 19:20 Potassium 3.1 mMol/L (3.4-5.1) L 08/13/24 19:20 Chloride 108 mMol/L (98-107) H 08/13/24 19:20 Carbon Dioxide 30.6 mMol/L (20.0-31.0) 08/13/24 19:20 Anion Gap 10 (7-16) 08/13/24 19:20 BUN 35 mg/dL (9-23) H 08/13/24 19:20 Creatinine 1.3 mg/dL (0.6-1.3) 08/13/24 19:20 Estim Creat Clear Calc Not Performed. 08/13/24 19:20 eGFR 44 See Note (60-) L 08/13/24 19:20 BUN/Creatinine Ratio 27 Ratio (12-20) H 08/13/24 19:20 Glucose 96 mg/dL (74-106) 08/13/24 19:20 Calculated Osmolality 304 (275-295) H 08/13/24 19:20 Lactic Acid 1.2 mMol/L (0.4-2.0) 08/13/24 19:26 Calcium 9.0 mg/dL (8.3-10.6) 08/13/24 19:20 Corrected Calcium 9.2 mg/dL (8.5-10.1) 08/13/24 19:20 Magnesium 1.9 mg/dL (1.6-2.6) 08/13/24 19:20 Total Bilirubin 0.2 mg/dL (0.3-1.2) L 08/13/24 19:20 Direct Bilirubin < 0.1 mg/dL (0.0-0.3) 08/13/24 19:20 AST 13 U/L (0-34) 08/13/24 19:20 ALT 8 U/L (10-49) L 08/13/24 19:20 Alkaline Phosphatase 42 U/L (46-116) L 08/13/24 19:20 Ammonia < 10 uMol/L (11-32) L 08/13/24 19:26 Total Creatine Kinase 50 U/L (34-171) 08/13/24 19:20 Troponin I < 0.002 ng/mL (0.0-0.045) 08/13/24 19:20 C-Reactive Prot, Quant < 0.5 mg/dL (0.0-0.9) 08/13/24 19:20 B-Natriuretic Peptide 72 pg/mL (0-100) 08/13/24 19:26 Total Protein 6.0 gm/dL (5.7-8.2) 08/13/24 19:20 Albumin 3.7 gm/dL (3.4-4.8) 08/13/24 19:20 Globulin 2.3 gm/dL (2.3-3.5) 08/13/24 19:20 Albumin/Globulin Ratio 1.6 (1.2-2.2) 08/13/24 19:20 Procalcitonin 0.06 ng/ml (0.0-0.49) 08/13/24 19:20 TSH 2.82 uIU/mL (0.55-4.78) 08/13/24 19:20 Free T4 1.40 ng/dL (0.89-1.76) 08/13/24 19:20 Ur Collection Type Clean Catch 08/14/24 03:15 Urine Color Yellow (Lt Yel-Yel) 08/14/24 03:15 Urine Clarity Clear (Clear/Hazy) 08/14/24 03:15 Urine pH 6.5 (5.0-7.0) 08/14/24 03:15 Ur Specific [place] 1.024 (1.001-1.035) 08/14/24 03:15 Urine Protein Trace (Neg - Trace) 08/14/24 03:15 Urine Glucose (UA) Negative (Negative) 08/14/24 03:15 Urine Ketones Negative (Negative) 08/14/24 03:15 Urine Blood Negative (Negative) 08/14/24 03:15 Urine Nitrite Negative (Negative) 08/14/24 03:15 Urine Bilirubin Negative (Negative) 08/14/24 03:15 Urine Urobilinogen (Auto) 2.0 mg/dL (0.0-1.0) 08/14/24 03:15 Ur Leukocyte Esterase Positive (Negative) 08/14/24 03:15 Urine RBC 4 /hpf (0-3) H 08/14/24 03:15 Urine WBC 21 /hpf (0-5) H 08/14/24 03:15 Ur Squamous Epith Cells < 1 /hpf (0-5) 08/14/24 03:15 Urine Bacteria None (None) 08/14/24 03:15 Ur Culture Indicated? Yes 08/14/24 03:15 Salicylates < 3.0 mg/dL 08/13/24 19:20 Urine Opiates Screen Negative (Negative) 08/14/24 03:15 Urine Fentanyl Screen Negative (Negative) 08/14/24 03:15 Acetaminophen < 2.0 mcg/mL (10.0-20.0) L 08/13/24 19:20 Ur Barbiturates Screen Negative (Negative) 08/14/24 03:15 U Amphetamin/Meth Scrn Positive (Negative) A 08/14/24 03:15 U Benzodiazepines Scrn Negative (Negative) 08/14/24 03:15 U Cocaine Metab Screen Negative (Negative) 08/14/24 03:15 U Marijuana (THC) Screen Negative (Negative) 08/14/24 03:15 Ethyl Alcohol < 3.0 mg/dL (0-10.0) 08/13/24 19:20
[2024-08-14 06:29] VITALS: BP 127/72; PULSE 57; RESP 18; O2SAT 98
--- NOTE | 2024-08-14 08:35 | PC.NURSE ---
PATIENT STATING SHE WAS WANTING TO LEAVE. PT HAD PLACED HER CLOTHING BACK ON AND WAS WALKING OUT THE ER. ATTEMPTED TO HAVE PT STAY. PT WALKING OUT OF ED WITH NO DIFFICULTY.
== END 2024-08-14 08:49 | disposition left against medical advice (07) ==
PROVIDERS: Emergency Medicine; Emergency Provider Emergency Medicine; PCP Family Medicine
DX: N39.0 Urinary tract infection, site not specified (principal); F15.90 Other stimulant use, unspecified, uncomplicated; F20.9 Schizophrenia, unspecified; Z53.29 Procedure and treatment not carried out because of patient's decision for other reasons; J44.9 Chronic obstructive pulmonary disease, unspecified; M54.2 Cervicalgia; R51.9 Headache, unspecified; R06.02 Shortness of breath
CPT/HCPCS: 36415; 70450; 71045; 71250; 72125; 74176; 80053; 80307; 80320; 80329; 81001; 82140; 82248; 82550; 82803; 83605; 83735; 83880; 84145; 84439; 84443; 84484; 85025; 85610; 85652; 85730; 86140; 87040; 87086; 87400; 87811; 93005; 99284; A9270; G0480

== ENCOUNTER 2024-12-27 14:24 | Emergency (ER) | payer MEDICARE, MEDICAID, SELFPAY ==
--- NOTE | 2024-12-27 14:28 | PD.EDMEDCL ---
ED Medical Clearance RME/HPI General Chief complaint: Psychiatric Symptoms Stated complaint: HOLD Time Seen by Provider: 12/27/24 14:27 Arrival date/time: 12/27/24 14:24 RME / HPI RME / HPI Narrative: DR. DE LA CRUZ MAIN ED EVALUATION: 69-year-old female with a history of chronic schizophrenia and methamphetamine abuse was brought in by police on a hold after being found obstructing traffic on the side of the road. The patient has no physical complaints at this time. On arrival, she is agitated, argumentative, and unable to provide reliable history. No reported trauma, self-harm, or ingestion. Related Information Home Medications ?Medication ?Instructions ?Recorded ?Confirmed folic acid 1 mg tablet 1 mg PO QDAY 12/28/23 12/28/23 lisinopril 20 1 tab PO QDAY 12/28/23 12/28/23 mg-hydrochlorothiazide 12.5 mg tablet Previous Rx's ?Medication ?Instructions ?Recorded nicotine 14 mg/24 hr daily 14 mg top QDAY #7 ea 01/04/24 transdermal patch quetiapine 50 mg tablet 50 mg PO BID #60 tabs 01/04/24 cephalexin 500 mg capsule 500 mg PO QID #14 caps 07/10/24 Allergies Allergy/AdvReac Type Severity Reaction Status Date / Time No Known Allergies Allergy Verified 12/27/24 14:43 Review of Systems Review of Systems Systems Reviewed: All systems reviewed, normal except as documented ROS Unobtainable: other (Agitated not able to provide any history.) Past Medical History Past Medical History NEUROLOGIC: Positive Neurological Disorders and Dementia CARDIAC: Positive Cardiac Disorders and Hypertension RESPIRATORY: Positive Asthma GENITOURINARY: Negative Renal Disease MUSCULOSKELETAL: Positive Musculoskeletal Disorders and Rheumatoid Arthritis ENDOCRINE: Positive Endocrine Disorders HEMATOLOGIC: Negative Sickle Cell Disease PSYCHO/SOCIAL: Positive Schizophrenia OTHER HISTORY: Negative Anesthesia Reactions Social History SMOKING STATUS: Unknown if ever smoked SECOND HAND EXPOSURE: Yes SUBSTANCE USE: methamphetamine (hx) ED Exam Narrative Physical exam: GENERAL APPEARANCE: agitated, uncooperative; unable to provide meaningful history VITALS: All vitals were reviewed and the pulse ox is 95% on room air, which is normal according to my interpretation. HEENT: Normocephalic, atraumatic; pupils equal, round, reactive to light; EOMI; mucous membranes pink, moist; oropharynx clear NECK: Supple LUNGS: CTABL; no wheezes, no rales, no rhonchi HEART: tachycardic, regular rhythm; normal S1, S2; no murmurs ABDOMEN: non distended; normal BS; soft, no tenderness, no guarding, no rebound; no masses, no organomegaly, no hernia BACK: no CVA tenderness EXTREMITIES: atraumatic; no edema NEUROLOGIC: awake; moves all extremities; no focal sensory or motor deficits PSYCHIATRIC: Agitated, argumentative, unable to provide history SKIN: warm, dry, normal color; no rashes Course Quality Measures none Orders Category Date Time Status Diet Regular Diet 12/28/24 Breakfast Active Acetaminophen Stat Lab 12/27/24 23:44 Completed Alcohol, Urine Stat Lab 12/28/24 00:48 Completed BNP [B-Type Natriuretic Peptide] Stat Lab 12/27/24 22:54 Completed Beta Hydroxybutyrate Stat Lab 12/27/24 23:44 Completed CBC Stat Lab 12/27/24 22:56 Completed CK [Creatine Kinase] Stat Lab 12/27/24 23:44 Completed CMP [Comprehensive Metabolic Panel] Stat Lab 12/27/24 22:56 Completed Drug Screen,Urine Stat Lab 12/28/24 00:48 Completed Magnesium Stat Lab 12/27/24 23:44 Completed Salicylate Stat Lab 12/27/24 23:44 Completed TSH [Thyroid Stimulating Hormone] Stat Lab 12/27/24 23:44 Completed UA, C/S IF [Urinalysis, C/S if Indicated] Stat Lab 12/28/24 00:48 Completed Urine Culture Stat Lab 12/28/24 00:48 Completed Vital Signs Vital signs: Vital Signs Temperature 98.2 F 12/27/24 14:31 Pulse Rate 95 12/27/24 14:31 Respiratory Rate 19 12/27/24 14:31 Blood Pressure 116/67 12/27/24 14:31 Pulse Oximetry (%) 95 12/27/24 14:31 Oxygen Delivery Method Room Air 12/27/24 14:31 Medical Clearance MDM Narrative MDM Narrative:: IDian am scribing for and in the presence of Dr. De La Cruz. Patient data External records reviewed:: [facility] previous records Clinical information provided by:: law enforcement Social determinants that could affect healthcare access:: substance use Patient has the following chronic illnesses:: chronic schizophrenia and methamphetamine abuse How is presenting disease/condition affected by chronic disease/condition?: exacerbated by Evaluation data The following diagnostics were reviewed and interpreted by me:: lab results Lab and/or radiology exams considered but not ordered:: none Interpretation Summary: Pending labs. Medications / Prescriptions Medications or Prescriptions considered but not ordered:: none Medication administrations:: see above if any Consultations Consultation(s) initiated? (list below): No Diagnosis Medical Clearance Differential Diagnosis: other (Acute psychosis, methamphetamine intoxication, and delirium.) Most likely diagnosis given after review of the tests above:: No official diagnoses at this time, still pending diagnostic tests. Patient signout to the night shift supervisor provider. Admission Indicated Admission indicated?: not indicated Explain why admission is indicated or not indicated:: No final disposition plan at this time, still pending diagnostic tests. Patient signout to the night shift supervisor provider. Admission Request Was there a request for admission?: No Disposition Plan Disposition Plan: other (specify) (Patient signout to the night shift supervisor provider.) Discharge Plan Plan Patient Disposition: HOME (Self Care) Prescriptions/Referrals Prescriptions/Med Rec: No Action folic acid 1 mg tablet 1 mg PO QDAY Patient Comments: TAKE 1 TABLET BY MOUTH EVERY DAY lisinopril-hydrochlorothiazide 20-12.5 mg tablet 1 tab PO QDAY Patient Comments: TAKE 1 TABLET BY MOUTH EVERY DAY nicotine 14 mg/24 hr Patch 24 Hour 14 mg top QDAY Qty: 7 0RF quetiapine 50 mg tablet 50 mg PO BID Qty: 60 0RF cephalexin 500 mg capsule 500 mg PO QID Qty: 14 0RF Referrals: No Primary/Family,Physician [Primary Care Provider] - In 1 week Problem List Clinical Impression: Methamphetamine abuse, Acute psychosis Patient/Caregiver Discharge Instructions Education Materials: ED Drug Abuse Print Language: Senegalese Stand Alone Forms: [facility] Award Info., Patient Portal Info Letter
[2024-12-27 14:31] VITALS: BP 116/67; PULSE 95; RESP 19; TEMP 36.8; O2SAT 95
[2024-12-27 14:45] VITALS: BMI 17.2
--- NOTE | 2024-12-27 14:56 | PC.NURSE ---
pt is ralking to self states she cant hear us refused to read any writing stating that she dont have her glasses, pt is rambling then becomes aggressive, pt refuses to answer any question or be cooperative
--- NOTE | 2024-12-27 18:54 | PD.EDADDENDU ---
Emergency Room Addendum <Hiral Pace - Last Filed: 12/27/24 18:54> Addendum Narrative: 1800: Care assumed from Dr. De La Cruz, the previous shift emergency physician. Past medical, surgical, social and family history reviewed. Vitals and home medications reviewed. Results and treatment plan discussed. I will assume the care of the patient at this time and will follow the patient. Please refer to the emergency department record for history and examination from initial visit. <Judi Gomez MD - Last Filed: 12/27/24 23:19> Addendum Narrative: 1800: Care assumed from Dr. De La Cruz, the previous shift emergency physician. Past medical, surgical, social and family history reviewed. Vitals and home medications reviewed. Results and treatment plan discussed. I will assume the care of the patient at this time and will follow the patient. Please refer to the emergency department record for history and examination from initial visit. Labs without acute hematologic abnormality, rest of patient's labs are pending. Patient signed out to oncoming provider pending results of workup, and medical clearance prior to psychiatric evaluation.
[2024-12-27 23:01] LABS: Basophils # (Auto) 0.1 Thou/mm3 (0.0-0.2); Basophils % (Auto) 1 % (0-2.5); Eosinophils # (Auto) 0.1 Thou/mm3 (0.0-0.5); Eosinophils % (Auto) 1 % (0-10); Hematocrit 38.3 % (36.0-46.0); Hemoglobin 13.3 g/dL (12.0-16.0); Immature Granulocytes Auto 0.02 Thou/mm3 (0.00-0.00); Lymphocytes # (Auto) 1.9 Thou/mm3 (1.0-4.8); Lymphocytes % (Auto) 20 % (10-50); Mean Corpuscular HGB Conc 34.7 g/dl (31.0-37.0); Mean Corpuscular Hemoglobin 30.6 pg (25.0-35.0); Mean Corpuscular Volume 88 fL (80-100); Monocytes # (Auto) 0.8 Thou/mm3 (0.0-0.8); Monocytes % (Auto) 8 % (0-12); Neutrophils # (Auto) 6.7 Thou/mm3 (1.8-7.7); Neutrophils % (Auto) 71 % (37-80); Nucleated Red Blood Cell # 0.00 Thou/mm3 (0.00-0.00); Nucleated Red Blood Cell % 0 /100 WBC (0); Platelet Count 200 Thou/mm3 (140-440); RDW Standard Deviation 40.1 fL (36.4-46.3); Red Blood Count 4.34 Miln/mm3 (4.00-5.20); White Blood Count 9.4 Thou/mm3 (3.6-11.0)
[2024-12-27 23:23] LABS: Alanine Aminotransferase 11 U/L (10-49); Albumin, Serum 3.9 gm/dL (3.4-4.8); Albumin/Globulin Ratio 1.4 (1.2-2.2); Alkaline Phosphatase 60 U/L (46-116); Anion Gap 12 (7-16); Aspartate Amino Transferase 23 U/L (0-34); BUN/Creatinine Ratio 24 Ratio (12-20); Bilirubin,Total 0.3 mg/dL (0.3-1.2); Blood Urea Nitrogen 29 mg/dL (9-23); Calcium 9.7 mg/dL (8.3-10.6); Calcium (Corrected) 9.8 mg/dL (8.5-10.1); Carbon Dioxide 23.5 mMol/L (20.0-31.0); Chloride 107 mMol/L (98-107); Creatinine (Component) 1.2 mg/dL (0.6-1.3); Estimated Creatinine Clearance 30.8 mL/min (>60); Globulin 2.8 gm/dL (2.3-3.5); Glucose 89 mg/dL (74-106); Osmolality,Calculated 287 (275-295); Potassium 3.6 mMol/L (3.4-5.1); Sodium 142 mMol/L (136-145); Total Protein 6.7 gm/dL (5.7-8.2); eGFR 48 See Note
--- NOTE | 2024-12-27 23:44 | EDNOTE_ITS ---
Emergency Room Addendum <Hiral Pace - Last Filed: 12/28/24 02:18> Addendum Narrative: I took over the care from previous shift physician, Dr. Gomez, at 11:30pm on 12/27/24. See previous notes for complete H & P and ED course. I reviewed all diagnostic test results. Diagnoses include: Patient is medically clear. Pending evaluation by our ED Top Coater in the morning. At 6 AM on 12/28/2024, the care of the patient was transferred to Dr. De La Cruz. During my watch, the patient remained stable. Hamilton Calixto MD <Hamilton Calixto MD - Last Filed: 12/28/24 02:43> Addendum Narrative: I took over the care from previous shift physician, Dr. Gomez, at 11:30pm on 12/27/24. See previous notes for complete H & P and ED course. I reviewed all diagnostic test results. Diagnoses include: Gravely disabled 5050 hold Methamphetamine use Schizophrenia Patient is medically cleared for further psychiatric care, including evaluation by our ED women's health care nurse practitioner. At 6 AM on 12/28/2024, the care of the patient was transferred to Dr. De La Cruz. During my watch, the patient remained stable. Hamilton Calixto MD
[2024-12-28 00:13] LABS: B-Type Natriuretic Peptide 46 pg/mL (0-100)
[2024-12-28 00:22] LABS: Beta Hydroxybutyrate 0.8 mmol/L (<0.6)
[2024-12-28 00:52] LABS: Acetaminophen < 2.0 mcg/mL (10.0-20.0); Creatine Kinase 158 U/L (34-171); Magnesium 1.7 mg/dL (1.6-2.6); Salicylate < 3.0 mg/dL; Thyroid Stimulating Hormone 1.44 uIU/mL (0.55-4.78)
[2024-12-28 01:10] LABS: Collection Type, Urine Clean Catch
[2024-12-28 01:17] LABS: Bacteria,Urine Rare; Bilirubin,Urine Negative (Negative); Blood,Urine Negative (Negative); Clarity,Urine Clear (Clear/Hazy); Color,Urine Lt-Yellow (Lt Yel-Yel); Glucose, Urine Negative (Negative); Hyaline Casts,Urine < 1 /hpf (0-1); Ketones,Urine Negative (Negative); Leukocyte Esterase,Urine Positive (Negative); Nitrite,Urine Negative (Negative); PH,Urine 6.0 (5.0-7.0); Protein,Urine Trace (Neg - Trace); RBC,Urine 4 /hpf (0-3); Specific Gravity,Urine 1.026 (1.001-1.035); Squamous Epithelial Cell,Urine 2 /hpf (0-5); Urobilinogen,Urine Negative mg/dL (0.0-1.0); WBC,Urine 11 /hpf (0-5)
[2024-12-28 01:20] LABS: Culture Indicated,Urine Yes
[2024-12-28 01:26] LABS: Alcohol, Urine Negative (Negative); Amphetamine/Methamp Scrn,U Positive (Negative); Barbiturate Screen,Urine Negative (Negative); Benzodiazepines Screen,Urine Negative (Negative); Benzoylecgonine Screen, Ur Negative (Negative); Fentanyl Screen,Urine Negative (Negative); Opiate Screen,Urine Negative (Negative); THC Screen,Urine Negative (Negative)
[2024-12-28 06:31] VITALS: BP 132/84; PULSE 89; RESP 16; TEMP 36.7; O2SAT 98
--- NOTE | 2024-12-28 07:33 | PC.CC ---
Addendum entered by Virginia Perez 12/28/24 09:38: DIGITAL LIBRARIAN Installation Coordinator Funmilayo Stern called pts spouse Axel John [phone] to inform him that pt will be d/c and he stated he would be at ther ER in 30 mintues to p/u the pt. Addendum entered by Virginia Perez 12/28/24 08:40: On 12/28/2024, SANJAY Perez completed a face to face initial assessment with the pt at bedside. Pt is a 69 yo female BIBA to the ED on a 5150 Hold for gravely disabled on 12/27/2024. It was reported that the pt attempted to walk into traffic and because of that she was placed on the hold for gravely disabled and DTS. SANJAY Perez met with the pt at bedside on 12/28/2024, and upon entry, pt was sitting up on her bed. SANJAY Perez introduced self and informed her of my role and reason for the visit; pt understood and was AOx4. Access Manager prompted questions for the pt to explain the series of events that led her to the ED and pt was able to describe play by play where she was in the ED. Pts demeanor was calm and cooperative. Pt reported that she and her boyfriend live out of their car. Pt reported she has an upcoming MH appointment with [facility] on Saturday at 9am, which she plans to attend. Pt reported she is connected to community mental health services and is connected to [facility] program. Pt admittedly denied SI/HI, harm to self, and denied AVH. ASW provided update of hold being rescinded to ED Dr. De La Cruz, assembler insulator Lanise, bedside RN Lucero Vásquez. ?? Upon clinical consultation with INVESTIGATIVE REPORTER, Juliana Crippin the patient?s 5150-hold will be rescinded. ASW provided patient with advisement of 5150 being rescinded. Patient scored low risk on C-SSRS. Original Note: 0733-Pt is a 69 yo female BIB [employer] as she is on a 5150 Hold for DTS and Gravely Disabled. Per [employer] Officer Sanjeev 320 hold, it reads a danger to herself and gravely disabled due to walking in the middle of the roadway. Female does not make sense nor does she know her address. However, per [facility] records pt is homeless. At this time, pt is waiting for medical clearance for a MH eval. SANJAY Perez will assess the pt when medically cleared.
--- NOTE | 2024-12-28 08:25 | PC.NURSE ---
S/S Edie at bedside to evaluate patient. Patient to er BIB law enforcement for wandering in the street yesterday afternoon, was confused and unable to give officer her home address. Currently patient calm and cooperative, [place], wrote down questions for her to answer, patient denies SI/hi, denies feeling hopeless or depressed, patient alert and oriented x 4. Paitnet aware she was picked up by police, skin is warm dry and pink. Per Edie states she is rescending hold and will notify provider. Patient provided with sandwich and coffee.
--- NOTE | 2024-12-28 09:16 | PD.EDADDENDU ---
Emergency Room Addendum <Katelyn De La Cruz MD - Last Filed: 12/28/24 09:16> Addendum Narrative: Hold rescinded <Mehnaz Smith - Last Filed: 12/28/24 10:44> Addendum Narrative: 0600: Care assumed from Dr. Calixto, the previous shift emergency physician. Past medical, surgical, social and family history reviewed. Vitals and home medications reviewed. I will assume the care of the patient at this time, pending mental health evaluation. Please refer to the emergency department record for history and examination from initial visit.?The following addendum documentation note is intended to reflect any pending information, findings, or radiology results not included in the patient?s initial chart. 0915: Patient has been evaluated by manager social services and rescinded the 5150 hold. Patient has remained stable through ED course, will DC home.
== END 2024-12-28 10:30 | disposition home or self-care (01) ==
PROVIDERS: Emergency Medicine; Emergency Provider Emergency Medicine
DX: F20.9 Schizophrenia, unspecified (principal); F15.10 Other stimulant abuse, uncomplicated
CPT/HCPCS: 36415; 80053; 80307; 80320; 80329; 81001; 82010; 82550; 83735; 83880; 84443; 85025; 87086; 96127; 99283; G0480

== ENCOUNTER 2025-01-02 14:02 | Emergency (ER) | payer MEDICARE, MEDICAID, SELFPAY ==
[2025-01-02 14:17] VITALS: BP 104/64; PULSE 76; RESP 18; TEMP 36.4; O2SAT 96
[2025-01-02 14:20] VITALS: PULSE 85; O2SAT 97
--- NOTE | 2025-01-02 14:25 | PD.EDAMS ---
Altered Mental Status RME/HPI General Chief Complaint: General Adult/Misc Complain Stated Complaint: HYPOGLYCEMIC Time Seen by Provider: 01/02/25 14:13 Arrival date/time: 01/02/25 14:02 RME / HPI RME / HPI narrative: DR. VEE MAIN ED EVALUATION: 69-year-old female with a history of chronic schizophrenia and methamphetamine abuse was brought in by EMS after being found lying on the sidewalk [place]. The patient reported to EMS that she passed out and EMS states she looked dehydrated. A bystander witnessed her on the ground and called 911. Per EMS, her initial blood glucose was 60, which increased to 296 on recheck en route after receiving oral glucose. No seizure activity or trauma reported by EMS. No chest pain, shortness of breath, headache, nausea, or vomiting reported. Related Data Home Medications ?Medication ?Instructions ?Recorded ?Confirmed folic acid 1 mg tablet 1 mg PO QDAY 12/28/23 12/28/23 lisinopril 20 1 tab PO QDAY 12/28/23 12/28/23 mg-hydrochlorothiazide 12.5 mg tablet Previous Rx's ?Medication ?Instructions ?Recorded nicotine 14 mg/24 hr daily 14 mg top QDAY #7 ea 01/04/24 transdermal patch quetiapine 50 mg tablet 50 mg PO BID #60 tabs 01/04/24 cephalexin 500 mg capsule 500 mg PO QID #14 caps 07/10/24 Allergies Allergy/AdvReac Type Severity Reaction Status Date / Time No Known Allergies Allergy Verified 01/02/25 14:20 Review of Systems Review of Systems Systems Reviewed: All systems reviewed, normal except as documented Past Medical History Past Medical History NEUROLOGIC: Positive Neurological Disorders and Dementia CARDIAC: Positive Cardiac Disorders and Hypertension RESPIRATORY: Positive Asthma MUSCULOSKELETAL: Positive Musculoskeletal Disorders and Rheumatoid Arthritis ENDOCRINE: Positive Endocrine Disorders PSYCHO/SOCIAL: Positive Schizophrenia Social History SMOKING STATUS: Unknown if ever smoked SECOND HAND EXPOSURE: Yes SUBSTANCE USE: methamphetamine (hx) ALCOHOL: Never ED Exam Narrative Physical exam: GENERAL APPEARANCE: alert and oriented x 4, well-developed, well-nourished, no acute distress VITALS: All vitals were reviewed and the pulse ox is 96% on room air, which is normal according to my interpretation. HEENT: Normocephalic; left periorbital bruise present without swelling or active bleeding; pupils equal, round, reactive to light; EOMI; mucous membranes dry NECK: Supple LUNGS: CTABL; no wheezes, no rales, no rhonchi HEART: Regular rate, regular rhythm; normal S1, S2; no murmurs ABDOMEN: non distended; normal BS; soft, no tenderness, no guarding, no rebound; no masses, no organomegaly, no hernia BACK: no CVA tenderness EXTREMITIES: atraumatic; no edema NEUROLOGIC: awake; alert and oriented x4; cranial nerves II-XII grossly intact; no focal sensory or motor deficits PSYCHIATRIC: appropriate mood and affect SKIN: warm, dry, normal color; no rashes Course Quality Measures none Orders Category Date Time Status Diet Regular Diet 01/02/25 Dinner Active Vital Signs Vital signs: Vital Signs Temperature 97.5 F 01/02/25 14:17 Pulse Rate 76 01/02/25 14:17 Respiratory Rate 18 01/02/25 14:17 Blood Pressure 104/64 01/02/25 14:17 Pulse Oximetry (%) 96 01/02/25 14:17 Oxygen Delivery Method Room Air 01/02/25 14:17 Altered Mental Status MDM Narrative MDM Narrative:: Dian Villalobos am scribing for and in the presence of Dr. Vee. Patient data External records reviewed:: [facility] previous records and EMS form Clinical information provided by:: patient and EMS Social determinants that could affect healthcare access:: substance use Patient has the following chronic illnesses:: chronic schizophrenia and methamphetamine abuse How is presenting disease/condition affected by chronic disease/condition?: exacerbated by Evaluation data The following diagnostics were reviewed and interpreted by me:: other (specify) (none) Lab and/or radiology exams considered but not ordered:: none Interpretation Summary: n/a Medications / Prescriptions Medications or Prescriptions considered but not ordered:: none Medication administrations:: see above if any Consultations Consultation(s) initiated? (list below): No Diagnosis Differential diagnosis altered mental status: other (Syncope secondary to hypoglycemia, dehydration, and possible head injury.) Most likely diagnosis given after review of the tests above:: See below under clinical impression Admission Indicated Admission indicated?: not indicated Admission Request Was there a request for admission?: No Disposition Plan Disposition Plan: Discharge Discharge Attestation Discharge Attestation: The patient and all family members were given an opportunity to ask questions and understood the discharge instructions. Discharge instructions specifically effects, indications for sooner follow up or return to the emergency department, and the expected course of current diagnosis. Patient condition: Stable Discharge Plan Plan Patient Disposition: HOME (Self Care) Prescriptions/Referrals Prescriptions/Med Rec: No Action folic acid 1 mg tablet 1 mg PO QDAY Patient Comments: TAKE 1 TABLET BY MOUTH EVERY DAY lisinopril-hydrochlorothiazide 20-12.5 mg tablet 1 tab PO QDAY Patient Comments: TAKE 1 TABLET BY MOUTH EVERY DAY nicotine 14 mg/24 hr Patch 24 Hour 14 mg top QDAY Qty: 7 0RF quetiapine 50 mg tablet 50 mg PO BID Qty: 60 0RF cephalexin 500 mg capsule 500 mg PO QID Qty: 14 0RF Referrals: No Primary/Family,Physician [Primary Care Provider] - In 1 week Problem List Clinical Impression: Methamphetamine abuse, Hypoglycemia Patient/Caregiver Discharge Instructions Education Materials: Hypoglycemia (Low Blood Sugar), ED Drug Abuse Print Language: Scottish Stand Alone Forms: [facility] Award Info., Patient Portal Info Letter
[2025-01-02 16:12] VITALS: BP 151/76; PULSE 70; RESP 18; TEMP 36.6; O2SAT 99
[2025-01-02 18:54] VITALS: BP 73/46; PULSE 78; RESP 16; TEMP 36.6; O2SAT 97
== END 2025-01-02 19:30 | disposition home or self-care (01) ==
PROVIDERS: Emergency Provider Emergency Medicine
DX: E16.2 Hypoglycemia, unspecified (principal); F15.10 Other stimulant abuse, uncomplicated; E86.0 Dehydration; F20.9 Schizophrenia, unspecified
CPT/HCPCS: 99281

== ENCOUNTER 2025-01-03 22:16 | Emergency (ER) | payer MEDICARE, MEDICAID, SELFPAY ==
[2025-01-03 22:37] VITALS: PULSE 70; RESP 20; TEMP 36.6; O2SAT 96; BMI 22.4
--- NOTE | 2025-01-03 22:46 | PC.NURSE ---
PER [employer] FAMILY DOES NOT WANT TO COME GET PATIENT SO SHE WILL BE ON A 5150 HOLD DANGER TO SELF
--- NOTE | 2025-01-03 23:25 | PD.EDPSYCH ---
ED Psych RME/HPI General Chief Complaint: Psychiatric Symptoms Stated Complaint: HOLD Time Seen by Provider: 01/03/25 23:24 Arrival date/time: 01/03/25 22:16 RME / HPI RME / HPI Narrative: Dr. Martinez?s Main ED Evaluation: 69yo female with history of schizophrenia, methamphetamine abuse, seen 1 day MILLWRIGHT SUPERVISOR after having been found on local sidewalk, who was subsequently cleared and released on antipsychotics now representing after reportedly running in traffic. Patient escorted back to ED by DPS for evaluation. Patient is guarding, therefore, history obtained by [employer]. PMH as stated above. PSH noncontributory. NKA. Related Data Home Medications ?Medication ?Instructions ?Recorded ?Confirmed folic acid 1 mg tablet 1 mg PO QDAY 12/28/23 12/28/23 lisinopril 20 1 tab PO QDAY 12/28/23 12/28/23 mg-hydrochlorothiazide 12.5 mg tablet Previous Rx's ?Medication ?Instructions ?Recorded nicotine 14 mg/24 hr daily 14 mg top QDAY #7 ea 01/04/24 transdermal patch quetiapine 50 mg tablet 50 mg PO BID #60 tabs 01/04/24 cephalexin 500 mg capsule 500 mg PO QID #14 caps 07/10/24 Allergies Allergy/AdvReac Type Severity Reaction Status Date / Time No Known Allergies Allergy Verified 01/02/25 14:20 Review of Systems Review of Systems Systems Reviewed: All systems reviewed, normal except as documented Past Medical History Past Medical History NEUROLOGIC: Positive Neurological Disorders and Dementia CARDIAC: Positive Cardiac Disorders and Hypertension; Negative Congestive Heart Failure RESPIRATORY: Positive Asthma; Negative Chronic Obstructive Pulmonary Disease (COPD) GENITOURINARY: Negative Renal Disease MUSCULOSKELETAL: Positive Musculoskeletal Disorders and Rheumatoid Arthritis ENDOCRINE: Positive Endocrine Disorders; Negative Diabetes Mellitus Type 1 or Diabetes Mellitus Type 2 HEMATOLOGIC: Negative Sickle Cell Disease PSYCHO/SOCIAL: Positive Schizophrenia OTHER HISTORY: Negative Anesthesia Reactions Social History SMOKING STATUS: Never smoker SECOND HAND EXPOSURE: Yes SUBSTANCE USE: methamphetamine (hx) ED Exam Narrative Physical exam: GENERAL APPEARANCE: alert and oriented x 4, chronically-ill no acute distress VITALS: All vitals were reviewed and the pulse ox is 96% on room air, which is normal according to my interpretation. HEENT: normocephalic, atraumatic NECK: supple LUNGS: no respiratory distress, normal effort HEART: good peripheral perfusion ABDOMEN: non distended EXTREMITIES: atraumatic NEUROLOGIC: awake; alert and oriented x4; cranial nerves II-XII grossly intact PSYCHIATRIC: withdrawn, nonverbal, avoidant mood and affect SKIN: warm, dry, normal color; no rashes Course Quality Measures none Orders Category Date Time Status One-to-one observation NOW Care 01/03/25 23:02 Active Acetaminophen Stat Lab 01/03/25 23:44 Completed Alcohol, Blood Medical Stat Lab 01/03/25 23:44 Completed Alcohol, Urine Stat Lab 01/03/25 23:40 Completed Basic Metabolic Panel Stat Lab 01/03/25 23:44 Completed CBC Stat Lab 01/03/25 23:44 Completed Drug Screen,Urine Stat Lab 01/03/25 23:40 Completed Vital Signs Vital signs: Vital Signs Temperature 97.8 F 01/03/25 22:37 Pulse Rate 70 01/03/25 22:37 Respiratory Rate 20 01/03/25 22:37 Pulse Oximetry (%) 96 01/03/25 22:37 Oxygen Delivery Method Room Air 01/03/25 22:37 Psych MDM Narrative MDM Narrative:: Scribe Attestation: 01/03/25 - Hiral Villalobos am scribing for and in the presence of Dr. Martinez. 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 Patient escorted back to ED by DPS for evaluation. Please see PE findings. Patient underwent basic psychiatric screening and evaluation. Labs demonstrated renal insufficiency, mild hypokalemia, and positive for methamphetamines. Aspirin and Acetaminophen are undetected. Alcohol is negative. Patient emotionally labile throughout ED course, although currently resting comfortably. Patient is medically clear for psychiatric evaluation. Dx: methamphetamine-induced psychosis Patient data External records reviewed:: [facility] previous records and Other (specify) (4730 form) Clinical information provided by:: law enforcement Social determinants that could affect healthcare access:: substance use (history of methamphetamine abuse) Patient has the following chronic illnesses:: schizophrenia How is presenting disease/condition affected by chronic disease/condition?: caused by Evaluation data The following diagnostics were reviewed and interpreted by me:: lab results Lab and/or radiology exams considered but not ordered:: none Interpretation Summary: See MDM Medications / Prescriptions Medications or Prescriptions considered but not ordered:: none Medication administrations:: none Consultations Consultation(s) initiated? (list below): No Diagnosis Psych Differential Diagnosis: acute psychosis, chronic schizophrenia, suicidal ideation, bipolar disorder and drug-induced psychotic disorder Most likely diagnosis given after review of the tests above:: see clinical impression below Admission Indicated Admission indicated?: not indicated Admission Request Was there a request for admission?: No Disposition Plan Disposition Plan: other (specify) (Signed out to Dr. Pearson at 6 AM.) Discharge Plan Prescriptions/Referrals Prescriptions/Med Rec: No Action folic acid 1 mg tablet 1 mg PO QDAY Patient Comments: TAKE 1 TABLET BY MOUTH EVERY DAY lisinopril-hydrochlorothiazide 20-12.5 mg tablet 1 tab PO QDAY Patient Comments: TAKE 1 TABLET BY MOUTH EVERY DAY nicotine 14 mg/24 hr Patch 24 Hour 14 mg top QDAY Qty: 7 0RF quetiapine 50 mg tablet 50 mg PO BID Qty: 60 0RF cephalexin 500 mg capsule 500 mg PO QID Qty: 14 0RF Referrals: No Primary/Family,Physician [Primary Care Provider] - In 1 week Problem List Clinical Impression: Methamphetamine-induced psychotic disorder Patient/Caregiver Discharge Instructions Print Language: Georgian
[2025-01-04 00:05] VITALS: BP 81/45; PULSE 55; RESP 16; TEMP 36.7; O2SAT 92
[2025-01-04 00:10] LABS: Basophils # (Auto) 0.1 Thou/mm3 (0.0-0.2); Basophils % (Auto) 1 % (0-2.5); Eosinophils # (Auto) 0.2 Thou/mm3 (0.0-0.5); Eosinophils % (Auto) 2 % (0-10); Hematocrit 36.0 % (36.0-46.0); Hemoglobin 11.7 g/dL (12.0-16.0); Immature Granulocytes Auto 0.03 Thou/mm3 (0.00-0.00); Lymphocytes # (Auto) 1.6 Thou/mm3 (1.0-4.8); Lymphocytes % (Auto) 16 % (10-50); Mean Corpuscular HGB Conc 32.5 g/dl (31.0-37.0); Mean Corpuscular Hemoglobin 29.3 pg (25.0-35.0); Mean Corpuscular Volume 90 fL (80-100); Monocytes # (Auto) 0.8 Thou/mm3 (0.0-0.8); Monocytes % (Auto) 8 % (0-12); Neutrophils # (Auto) 7.1 Thou/mm3 (1.8-7.7); Neutrophils % (Auto) 73 % (37-80); Nucleated Red Blood Cell # 0.00 Thou/mm3 (0.00-0.00); Nucleated Red Blood Cell % 0 /100 WBC (0); Platelet Count 156 Thou/mm3 (140-440); RDW Standard Deviation 41.0 fL (36.4-46.3); Red Blood Count 4.00 Miln/mm3 (4.00-5.20); White Blood Count 9.8 Thou/mm3 (3.6-11.0)
[2025-01-04 00:25] LABS: Acetaminophen < 2.0 mcg/mL (10.0-20.0); Alcohol, Blood Medical < 3.0 mg/dL (0-10.0); Anion Gap 13 (7-16); BUN/Creatinine Ratio 21 Ratio (12-20); Blood Urea Nitrogen 30 mg/dL (9-23); Calcium 9.3 mg/dL (8.3-10.6); Carbon Dioxide 22.4 mMol/L (20.0-31.0); Chloride 109 mMol/L (98-107); Creatinine (Component) 1.4 mg/dL (0.6-1.3); Estimated Creatinine Clearance 26.5 mL/min (>60); Glucose 93 mg/dL (74-106); Osmolality,Calculated 293 (275-295); Potassium 3.2 mMol/L (3.4-5.1); Sodium 144 mMol/L (136-145); eGFR 40 See Note
[2025-01-04 00:26] LABS: Alcohol, Urine Negative (Negative); Amphetamine/Methamp Scrn,U Positive (Negative); Barbiturate Screen,Urine Negative (Negative); Benzodiazepines Screen,Urine Negative (Negative); Benzoylecgonine Screen, Ur Negative (Negative); Fentanyl Screen,Urine Negative (Negative); Opiate Screen,Urine Negative (Negative); THC Screen,Urine Negative (Negative)
--- NOTE | 2025-01-04 05:52 | PC.NURSE ---
TYLER FREEMAN #[phone], FRIEND THAT PATIENT LIVES WITH. HE PICKED UP HERE UP YESTERDAY. HE STATES THAT SHE [facility] PSYCHIATRIST
[2025-01-04 06:16] VITALS: BP 109/65; PULSE 59; RESP 19; TEMP 36.4; O2SAT 97
[2025-01-04 08:33] VITALS: BP 99/58; PULSE 76; RESP 16; TEMP 36.6; O2SAT 99
--- NOTE | 2025-01-04 08:51 | PD.EDADDENDU ---
Emergency Room Addendum Addendum Narrative: Care assumed from Dr. Stearns. Past medical, surgical, social and family history reviewed. Vitals and home medications reviewed. Results and treatment plan discussed. I will assume the care of the patient at this time and will follow the patient, pending psychiatric placement. Please refer to the emergency department record for history and examination from initial visit. Patient remained stable while under my care. TYLER FREEMAN #[phone], FRIEND THAT PATIENT LIVES WITH. HE PICKED UP HERE UP YESTERDAY. HE STATES THAT SHE HAS AN APPT TODAY IN [place] WITH HER PSYCHIATRIST
== END 2025-01-04 09:25 | disposition home or self-care (01) ==
PROVIDERS: Emergency Medicine; Emergency Provider Family Medicine
DX: F20.9 Schizophrenia, unspecified (principal); F15.959 Other stimulant use, unspecified with stimulant-induced psychotic disorder, unspecified
CPT/HCPCS: 36415; 80048; 80307; 80320; 80329; 85025; 99283; G0480

== ENCOUNTER 2025-01-15 11:30 | Emergency (ER) | payer MEDICARE, MEDICAID, SELFPAY ==
[2025-01-15 11:32] VITALS: BP 132/90; PULSE 118; RESP 18; TEMP 36.6; O2SAT 96
--- NOTE | 2025-01-15 11:51 | PD.EDPSYCH ---
ED Psych RME/HPI General Chief Complaint: Psychiatric Symptoms Stated Complaint: MENTAL HOLD Time Seen by Provider: 01/15/25 11:43 Arrival date/time: 01/15/25 11:30 69-year-old female patient with significant history of hypertension, methamphetamine abuse, was brought in by law enforcement for 5150 hold. Apparently patient is homeless, was noted to be walking aimlessly, and not on herself. Concern CT send called EMS/law enforcement, and was brought in for 5150 hold. On my initial evaluation patient is answering few questions however sometimes talking nonsense. She denies any homicidal or suicidal ideation. Patient admitted to abusing meth last night. Related Data Home Medications ?Medication ?Instructions ?Recorded ?Confirmed folic acid 1 mg tablet 1 mg PO QDAY 12/28/23 12/28/23 lisinopril 20 1 tab PO QDAY 12/28/23 12/28/23 mg-hydrochlorothiazide 12.5 mg tablet Previous Rx's ?Medication ?Instructions ?Recorded nicotine 14 mg/24 hr daily 14 mg top QDAY #7 ea 01/04/24 transdermal patch quetiapine 50 mg tablet 50 mg PO BID #60 tabs 01/04/24 cephalexin 500 mg capsule 500 mg PO QID #14 caps 07/10/24 Allergies Allergy/AdvReac Type Severity Reaction Status Date / Time No Known Allergies Allergy Verified 01/15/25 12:08 Review of Systems Review of Systems Narrative Review of Systems: Review of system reviewed and within normal limits except mentioned in HPI ED Exam Narrative Physical exam: VITAL SIGNS: Reviewed. GENERAL APPEARANCE: Alert and oriented x 2, follows simple commands, no acute distress, positive flight of ideas HEAD AND FACE: Non-traumatic. ENT: PERRL, pink conjunctivitis, eyelid no trauma, Mucous membrane moist. NECK: Supple, nontender, no nuchal rigidity. CHEST: No tenderness, no crepitus, no paradoxical movement, no retractions. LUNGS: Clear, well ventilated, symmetric, no rales, no wheezing, no ronchi, no stridor, good breath sounds bilaterally. HEART: Regular rate, regular rhythm, no murmur, no gallops. ABDOMEN: Soft, positive bowel sounds, nondistended, no guarding, nontender, no rebound, no masses, RECTAL: Deferred. GENITAL: Deferred. NEUROLOGICAL: Gross motor function intact sensory function intact, Appropriate for age. MUSCULOSKELETAL: low back nontender, full range of motion. EXTREMITIES: Nontender, full range of motion. SKIN: Color pink, dry, no rash, no lacerations, no abrasions, no contusions. LYMPHATICS: Deferred. Course Quality Measures none Orders Category Date Time Status One-to-one observation NOW Care 01/15/25 12:00 Active Diet Regular Diet 01/15/25 Dinner Active Acetaminophen Stat Lab 01/15/25 12:02 Completed Alcohol, Blood Medical Stat Lab 01/15/25 12:02 Completed CBC Stat Lab 01/15/25 12:02 Completed CMP [Comprehensive Metabolic Panel] Stat Lab 01/15/25 12:02 Completed Drug Screen,Urine Stat Lab 01/15/25 11:47 Ordered Salicylate Stat Lab 01/15/25 12:02 Completed Urinalysis Stat Lab 01/15/25 11:46 Ordered QUEtiapine FUMARATE [SEROquel] Med 01/15/25 11:47 Discontinued 50 mg PO X1 ONE Referral Pedicurist NOW 01/15/25 11:46 Active Vital Signs Vital signs: Vital Signs Temperature 97.9 F 01/15/25 11:32 Pulse Rate 118 H 01/15/25 11:32 Respiratory Rate 18 01/15/25 11:32 Blood Pressure 132/90 H 01/15/25 11:32 Pulse Oximetry (%) 96 01/15/25 11:32 Oxygen Delivery Method Room Air 01/15/25 11:32 Psych MDM Narrative MDM Narrative:: 69-year-old female patient with significant history of hypertension, methamphetamine abuse, was brought in by law enforcement for 5150 hold. Apparently patient is homeless, was noted to be walking aimlessly, and not on herself. Concern CT send called EMS/law enforcement, and was brought in for 5150 hold. On my initial evaluation patient is answering few questions however sometimes talking nonsense. She denies any homicidal or suicidal ideation. Patient admitted to abusing meth last night. Patient is medically cleared for crisis intervention. forestry workers was already informed. Care transferred to Dr Stearns for final disposition. Patient will be reevaluated by social human services assistants in the morning. Patient data External records reviewed:: None Clinical information provided by:: patient and EMS Social determinants that could affect healthcare access:: mental health Patient has the following chronic illnesses:: Methamphetamine abuse How is presenting disease/condition affected by chronic disease/condition?: exacerbated by Evaluation data The following diagnostics were reviewed and interpreted by me:: lab results Lab and/or radiology exams considered but not ordered:: None Interpretation Summary: Pending drug test Medications / Prescriptions Medications or Prescriptions considered but not ordered:: None Medication administrations:: Medication Administration History Discontinued Medications Quetiapine Fumarate (Quetiapine Fumarate 25 Mg Tablet) 50 mg PO X1 ONE Stop: 01/15/25 11:48 Last Admin: 01/15/25 12:51 Dose: 50 mg Documented By: LINDSEY Collins Consultations Consultation(s) initiated? (list below): No Diagnosis Psych Differential Diagnosis: acute psychosis, suicidal ideation, bipolar disorder and drug-induced psychotic disorder Most likely diagnosis given after review of the tests above:: Drug-induced psychotic behavior Admission Indicated Admission indicated?: not indicated Admission Request Was there a request for admission?: No Disposition Plan Disposition Plan: other (specify) Discharge Plan Prescriptions/Referrals Prescriptions/Med Rec: No Action folic acid 1 mg tablet 1 mg PO QDAY Patient Comments: TAKE 1 TABLET BY MOUTH EVERY DAY lisinopril-hydrochlorothiazide 20-12.5 mg tablet 1 tab PO QDAY Patient Comments: TAKE 1 TABLET BY MOUTH EVERY DAY nicotine 14 mg/24 hr Patch 24 Hour 14 mg top QDAY Qty: 7 0RF quetiapine 50 mg tablet 50 mg PO BID Qty: 60 0RF cephalexin 500 mg capsule 500 mg PO QID Qty: 14 0RF Referrals: No Primary/Family,Physician [Primary Care Provider] - In 1 week Problem List Clinical Impression: Drug-induced psychotic disorder Patient/Caregiver Discharge Instructions Print Language: Mauritian
--- NOTE | 2025-01-15 12:00 | PC.SS ---
Patient Rachel Acuna is a 69 yo female BIB [employer] as she is on a 5150 Hold for DTS and Gravely Disabled. Per [employer] Officer A danger to herself and gravely disabled [place] . Female does not make sense and is not able to engage in conversation. At this time, pt is waiting for medical clearance for a MH eval.
[2025-01-15 12:04] VITALS: BMI 18.3
[2025-01-15 12:16] LABS: Basophils # (Auto) 0.1 Thou/mm3 (0.0-0.2); Basophils % (Auto) 1 % (0-2.5); Eosinophils # (Auto) 0.1 Thou/mm3 (0.0-0.5); Eosinophils % (Auto) 1 % (0-10); Hematocrit 43.3 % (36.0-46.0); Hemoglobin 14.6 g/dL (12.0-16.0); Immature Granulocytes Auto 0.02 Thou/mm3 (0.00-0.00); Lymphocytes # (Auto) 2.1 Thou/mm3 (1.0-4.8); Lymphocytes % (Auto) 27 % (10-50); Mean Corpuscular HGB Conc 33.7 g/dl (31.0-37.0); Mean Corpuscular Hemoglobin 29.9 pg (25.0-35.0); Mean Corpuscular Volume 89 fL (80-100); Monocytes # (Auto) 0.5 Thou/mm3 (0.0-0.8); Monocytes % (Auto) 7 % (0-12); Neutrophils # (Auto) 4.9 Thou/mm3 (1.8-7.7); Neutrophils % (Auto) 64 % (37-80); Nucleated Red Blood Cell # 0.00 Thou/mm3 (0.00-0.00); Nucleated Red Blood Cell % 0 /100 WBC (0); Platelet Count 232 Thou/mm3 (140-440); RDW Standard Deviation 41.2 fL (36.4-46.3); Red Blood Count 4.89 Miln/mm3 (4.00-5.20); White Blood Count 7.7 Thou/mm3 (3.6-11.0)
[2025-01-15 12:54] LABS: Acetaminophen < 2.0 mcg/mL (10.0-20.0); Alanine Aminotransferase 9 U/L (10-49); Albumin, Serum 4.7 gm/dL (3.4-4.8); Albumin/Globulin Ratio 1.7 (1.2-2.2); Alcohol, Blood Medical < 3.0 mg/dL (0-10.0); Alkaline Phosphatase 68 U/L (46-116); Anion Gap 10 (7-16); Aspartate Amino Transferase 20 U/L (0-34); BUN/Creatinine Ratio 22 Ratio (12-20); Bilirubin,Total 0.4 mg/dL (0.3-1.2); Blood Urea Nitrogen 24 mg/dL (9-23); Calcium 9.8 mg/dL (8.3-10.6); Calcium (Corrected) 9.8 mg/dL (8.5-10.1); Carbon Dioxide 24.9 mMol/L (20.0-31.0); Chloride 107 mMol/L (98-107); Creatinine (Component) 1.1 mg/dL (0.6-1.3); Estimated Creatinine Clearance 33.6 mL/min (>60); Globulin 2.8 gm/dL (2.3-3.5); Glucose 107 mg/dL (74-106); Osmolality,Calculated 287 (275-295); Potassium 3.4 mMol/L (3.4-5.1); Salicylate < 3.0 mg/dL; Sodium 142 mMol/L (136-145); Total Protein 7.5 gm/dL (5.7-8.2); eGFR 54 See Note
--- NOTE | 2025-01-15 13:16 | PC.NURSE ---
Patient presents to ED with [employer] being placed on 5150 due to walking by river and not answering questions appropriate. Patient at this time not answering questions, speaking to self, following commands. Patient placed in gown and layed in bed, safety teacher at bedside.
--- NOTE | 2025-01-15 15:16 | PC.SS ---
SS was contacted by Dr. Pearson to inform SS that patient was medically cleared.
--- NOTE | 2025-01-15 15:52 | PC.CC ---
STONECUTTER ASSISTANT attempted assessment at 345, however, patient was not able to stay awake to participate in a meaningful way. Will attempt a re-eval in the morning. - Jamilah Pichardo, STONECUTTER ASSISTANT [id number]
--- NOTE | 2025-01-15 15:57 | PC.SS ---
?YOVANI, Juliana Garcia and Stephen made [id number] contact with patient in the attempt to complete assessment. The patient is medically ?cleared, however at this time; they are not responding to questions and unable to engage in conversation and not fully aroused. Patient will need to be re-evaluated in the morning once they are more alert and responsive.
[2025-01-15 16:22] VITALS: BP 99/60; PULSE 61; RESP 18; TEMP 36.6; O2SAT 98
[2025-01-15 22:05] VITALS: BP 96/60; PULSE 60; RESP 18; TEMP 36.7; O2SAT 97
--- NOTE | 2025-01-16 00:01 | PD.EDADDENDU ---
Emergency Room Addendum Addendum Narrative: 2300: Care assumed from Philly Tony NP, (emergency mid-level provider). Past medical, surgical, social and family history reviewed. Vitals and home medications reviewed. Results and treatment plan discussed. I will assume the care of the patient at this time and will follow the patient, pending psychiatric evaluation. The following addendum documentation note is intended to reflect any pending information, findings, or radiology results not included in the patient?s initial chart by the previous shift scribe. 0600: Care assumed by Dr. Calixto (emergency physician). Past medical, surgical, social and family history reviewed. Vitals and home medications reviewed. Results and treatment plan discussed. They will assume the care of the patient at this time and will follow the patient, pending psychiatric evaluation.
[2025-01-16 00:21] LABS: Collection Type, Urine Clean Catch
[2025-01-16 00:45] LABS: Bilirubin,Urine Negative (Negative); Blood,Urine Negative (Negative); Clarity,Urine Clear (Clear/Hazy); Color,Urine Yellow (Lt Yel-Yel); Glucose, Urine Negative (Negative); Ketones,Urine Negative (Negative); Leukocyte Esterase,Urine Positive (Negative); Nitrite,Urine Negative (Negative); PH,Urine 6.0 (5.0-7.0); Protein,Urine Trace (Neg - Trace); RBC,Urine 2 /hpf (0-3); Specific Gravity,Urine 1.027 (1.001-1.035); Squamous Epithelial Cell,Urine < 1 /hpf (0-5); Urobilinogen,Urine 2.0 mg/dL (0.0-1.0); WBC,Urine 13 /hpf (0-5)
[2025-01-16 00:52] LABS: Amphetamine/Methamp Scrn,U Positive (Negative); Barbiturate Screen,Urine Negative (Negative); Benzodiazepines Screen,Urine Negative (Negative); Benzoylecgonine Screen, Ur Negative (Negative); Fentanyl Screen,Urine Negative (Negative); Opiate Screen,Urine Negative (Negative); THC Screen,Urine Negative (Negative)
--- NOTE | 2025-01-16 09:03 | PC.CC ---
Vaudeville Actor (CC)Minda informed by ordnance engineering technician-Lanise that patient was pending a mental health evaluation as she was brought in to the ED on 01/15/2025 by [place]-Officer, Lesvia Moreno. Per Officer Tiffanie, patient was observed on the bank of the river, and appeared nonsensical. Patient was also disoriented to place. CC met with patient [id number] to discuss mental health evaluation. CC introduced self, role and reason for visit. CC discussed limits of confidentiality. Patient appeared alert and oriented to self, place and situation. Patient was pleasant and cooperative. Patient's mood and behavior appeared ordinary. Patient appeared to be suffering from A/h, V/h, or paranoia. Patient reported being hard of hearing and requested for CC to write questions down, so she could read them and answer out loud. This is 69-year-old, , single female who presented to the ED on a 5150 hold for danger to self and being gravely disabled adult. Patient reported that she is homeless and has been sleeping in a car with her boyfriend, Ousmane ([phone]). Patient reported that she used methamphetamine, and was walking to a gas station to buy some food. Patient reported that she follows up with Dr. Sandoval at the [facility]. Patient declined to provide any information regarding her diagnosis. In previous note, patient's son, Ronald reported to [employer] that patient has been diagnosed with dementia, anxiety and schizophrenia. Patient denied any HI, SI, A/h, or V/h. Patient denied any past suicide attempts. Case was staffed with COUNTER INTELLIGENCE TECHNICIAN, Smita Sanford. 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 Patient denied any HI, SI, A/h, V/h. Patient does not meet crtieria for 5150 hold. CC rescinded hold. CC asked patient if she would like for CC to contact a few room and board. Patient declined. CC provided patient with community resources: housing, mental health, and transportation. CC updated ordnance engineering technician-Lanise.
--- NOTE | 2025-01-16 09:15 | PD.EDADDENDU ---
Emergency Room Addendum Addendum Narrative: pending psychiatric evaluation.
--- NOTE | 2025-01-16 09:18 | EDNOTE_ITS ---
Emergency Room Addendum Addendum Narrative: I took over the care from Dr. Stearns at 0600 on 01/16/25. See previous notes for complete H&P and ED course. I reviewed all diagnostic test results. Diagnoses include: Methamphetamine intoxication Patient evaluated by our ED pediatric acute care unit nurse. Recommended discharge home. On my exam, patient is alert and oriented and ambulatory. Discharge Instructions from Dr. Calixto printed for you: 1. Your psychosis was due to methamphetamine intoxication. 2. After evaluation, including assessment by our ED pediatric acute care unit nurse, you are cleared for discharge. 3. To prevent serious illnesses and injuries, some even fatal, avoid methamphetamine and all other drugs. 4. See a private doctor on 01/18/2025 for recheck. Ask for help to quit all drugs. 5. Seek immediate medical care with worsening or with any concerns.
== END 2025-01-16 09:30 | disposition home or self-care (01) ==
PROVIDERS: Nurse Practitioner Family; Emergency Provider Family Medicine
DX: F19.959 Other psychoactive substance use, unspecified with psychoactive substance-induced psychotic disorder, unspecified (principal); I10 Essential (primary) hypertension; Z59.00 Homelessness unspecified
CPT/HCPCS: 36415; 80053; 80307; 80320; 80329; 81001; 85025; 96127; 99284; A9270; G0480